=== PATIENT | male | born 1935 | race Caucasian/White ===

== ENCOUNTER 2018-05-17 09:02 | Day surgery (SDC) | payer MEDICARE, MEDICAID ==
[~2018-05-17 09:02] MED LIST: Acetaminophen TAB* 325 MG PO PRN; Buffered Lidocaine 0.9% SYRIN* 5 ML/SYR SYRINGE INTRADERM ONE
[2018-05-17] MEDS ORDERED: Midazolam* 1 MG/ML 5 ML VIAL (5 MG) ONE (10:27)
[2018-05-17] MEDS ORDERED: fentaNYL* 50 MCG/ML 2 ML VIAL (100 MCG VIAL) ONE (10:27)
[2018-05-17 11:42] VITALS: BP 163/72
[2018-05-17] MEDS ORDERED: Cyclopentolate 1% OPTH.SOL* 2 ML BTL ONE (12:04)
[2018-05-17] MEDS ORDERED: acetaZOLAMIDE TAB* 250 MG ONE (12:04)
[2018-05-17] MEDS ORDERED: Lidocaine 2% EPI 1:200000 MPF*10-20 ML VIAL ONE (12:04)
[2018-05-17] MEDS ORDERED: Lidocaine 1%* 5 ML VIAL ONE (12:04)
[2018-05-17] MEDS ORDERED: Ketorolac 0.5% OPHTH (NF) 0.5 % 5 ML BTL ONE (12:04)
[2018-05-17] MEDS ORDERED: Phenylephrine 2.5% OPTH.SOL* 2 ML BTL ONE (12:04)
[2018-05-17] MEDS ORDERED: Povidone Iodine 5% OPTH* 30 ML BTL ONE (12:04)
[2018-05-17] MEDS ORDERED: Neomycin/Polymy/Dex OPTH.SUSP* MAXITROL 0.1% 5 ML ONE (12:04)
[2018-05-17] MEDS ORDERED: Proparacaine 0.5% OPHTH.SOL* 15 ML BTL ONE (12:04)
--- NOTE | 2018-05-17 12:25 | OP ---
DATE OF OPERATION: 05/17/2018. DATE OF : 1935. SURGEON: Jose Daniel Tobin M.D. PREOPERATIVE DIAGNOSIS: Cataract right eye. POSTOPERATIVE DIAGNOSIS: Cataract right eye. OPERATIVE PROCEDURE: Extracapsular cataract extraction with intraocular lens implant right eye. PROCEDURE: The patient was brought to the operating room after being given 1/2% Alcaine with epineph rine drops in the preoperative area. The eye was prepped and draped in the usual sterile fashion. S terile drape and eyelid speculum were placed. Again, topical 1/2% Alcaine with epinephrine was given . A paracentesis incision was made at the 9 o'clock position with the No.75 blade. Clear cornea inc ision 2.2 x 2.2-mm was created at the 12 o'clock position starting at the anterior limbus using the 2 .2-mm keratome. The anterior chamber was irrigated with 0.4 mL of 1% non-preservative intracameral l idocaine and filled with DisCoVisc. A capsulorrhexis was completed using the cystotome and the Utrat a forceps. Hydrodissection was performed with balanced salt solution. The lens nucleus was removed w ith the Phacoemulsification handpiece without incident. Cortex was removed with the irrigation-aspir ation handpiece. The capsular bag was re-inflated using DisCoVisc and an SN60WF 20.5 Implant was ins erted with the shooter. The irrigation-aspiration handpiece was used to remove all residual DisCoVis c. The eye was refilled with balanced salt solution and the wound checked and found to be watertight . Topical Maxitrol drops were given. [id number]/[facility] #: [id number]
== END 2018-05-17 11:39 | disposition home or self-care (01) ==
LOC: OREAST 09:02
PROVIDERS: ATTEND Specialist
DX: H25.811 Combined forms of age-related cataract, right eye (principal); H43.813 Vitreous degeneration, bilateral; Z85.828 Personal history of other malignant neoplasm of skin; K21.9 Gastro-esophageal reflux disease without esophagitis; I10 Essential (primary) hypertension; I25.2 Old myocardial infarction; E78.00 Pure hypercholesterolemia, unspecified; Z95.5 Presence of coronary angioplasty implant and graft; Z86.718 Personal history of other venous thrombosis and embolism; Z79.01 Long term (current) use of anticoagulants; I25.10 Atherosclerotic heart disease of native coronary artery without angina pectoris; D64.9 Anemia, unspecified
CPT/HCPCS: A9270-GY; J2250; J3010; V2632

== ENCOUNTER 2018-11-17 11:48 | Emergency (ER) | payer MEDICARE, MEDICAID ==
[2018-11-17 11:54] VITALS: BP 182/80
--- NOTE | 2018-11-17 11:57 | UC ---
Head Injury HPI - HPI Summary HPI Summary: PATIENT SENT OVER TO DIRECTLY FROM IMAGING WITH A SUBDURAL HEMATOMA. PATIENT FELL 2 WEEKS AGO AND HAS HAD PERSISTENT PAIN AROUND HIS RIGHT EYE SINCE THEN. UNSURE IF ANY LOC. IS ON PLAVIX. HE WENT TO THE SYSTEM[facility] TESTING [facility]ORAT[facility] TECHNICIAN TODAY FOR FURTHER EVALUATION AND WAS ADVISED TO FOLLOW-UP WITH HIS PCP WHO ORDERED THE IMAGING. PT DENIES ANY SPEECH DIFFICULTY, WEAKNESS OR CHANGE IN HIS GAIT. - History Of Current Complaint Stated Complaint: BRAIN BLEED Time Seen by Provider: 11/17/18 11:51 Hx Obtained From: Patient Onset/Duration: Sudden Onset, Lasting Weeks, Still Present Severity Currently: Mild Severity Initially: Mild Pain Intensity: 0 Pain Scale Used: 0-10 Numeric Character: Dull Aggravating Factor(s): Nothing Alleviating Factor(s): Nothing Associated Signs And Symptoms: Negative: Memory Loss, Neck Pain, Nausea - Allergies/Home Medications Allergies/Adverse Reactions: Allergies Allergy/AdvReac Type Severity Reaction Status Date / Time allopurinol Allergy Rash Verified 11/17/18 12:23 PMH/Surg Hx/FS Hx/Imm Hx Cardiovascular History: Cardiac Disease Other Cancer History: skin cancer - Surgical History Surgical History: Yes Surgery Procedure, Year, and Place: CARDIAC STENTS 2005, [place]. Basal cell skin lesion removed, right lower eyelid 2012 - Social History Alcohol Use: Occasionally Substance Use Type: None Smoking Status (MU): Never Smoked Tobacco Review of Systems All Other Systems Reviewed And Are Negative: Yes Constitutional: Positive: Negative Skin: Positive: Negative Eyes: Negative: Blurred Vision, Drainage, Eye Redness Respiratory: Positive: Negative Cardiovascular: Positive: Negative Gastrointestinal: Positive: Negative Neurological: Positive: Headache Physical Exam Triage Information Reviewed: Yes Appearance: Well-Appearing, No Pain Distress, Well-Nourished Vital Signs: Initial Vital Signs Temp 98.1 F 11/17/18 11:50 Pulse 90 11/17/18 11:50 Resp 18 11/17/18 11:50 BP 182/80 11/17/18 11:50 Pulse Ox 99 11/17/18 11:50 Vital Signs Reviewed: Yes Eyes: Positive: Conjunctiva Clear, Other: - PERRL, EOMI. Negative: Discharge ENT: Positive: Hearing grossly normal, Pharynx normal, Other - RIGHT TM OBSTRUCTED BY CERUMEN. 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 Psychological: Positive: Age Appropriate Behavior Skin: Negative: Rashes Diagnostics - Radiology CT HEAD W/O CONTRAST Radiology Interpretation Completed By: Radiologist Summary of Radiographic Findings: ACUTE/SUBACUTE RIGHT FRONTAL SUBDURAL HEMATOMA MEASURING UP TO 1.8CM IN DEPTH Head Injury Course/Dx - Course Course Of Treatment: TO [facility] [place] [place] [facility] BY AMBULANCE - Differential Dx/Diagnosis Provider Diagnosis: Subdural hematoma - Physician Notification/Consults Discussed Patient Care With: Luis Antonio Saba - TO [facility] [place] BY AMBULANCE Time Discussed With Above Provider: 11:55 Instructed by Provider To: MD Will See In ED Discharge - Sign-Out/Discharge Documenting (check all that apply): Patient Departure All imaging exams completed and their final reports reviewed: Yes - Discharge Plan Condition: Guarded Disposition: TRANS HIGHER LVL OF CARE FAC Referrals: Robert Baez MD [Primary Care Provider] - - Billing Disposition and Condition Condition: GUARDED Disposition: Trans Higher Lvl of Care Fac
== END 2018-11-17 12:21 | disposition short-term general hospital (02) ==
LOC: UCEAST 11:48
DX: I62.00 Nontraumatic subdural hemorrhage, unspecified (principal); R51 Headache; H61.22 Impacted cerumen, left ear; I51.9 Heart disease, unspecified; Z95.5 Presence of coronary angioplasty implant and graft; Z79.02 Long term (current) use of antithrombotics/antiplatelets; Z88.8 Allergy status to other drugs, medicaments and biological substances
CPT/HCPCS: 99213; G0463

== ENCOUNTER 2018-11-17 12:14 | Observation (INO) | payer MEDICARE, MEDICAID ==
[2018-11-17] MEDS ORDERED: Labetalol IV* 5 MG/ML 20 ML VIAL IV PUSH ONE (12:24)
[2018-11-17] MEDS ORDERED: levETIRAcetam 1000MG IVPREMIX* 1,000 MG/100 ML BAG IVPB ONE (12:27)
--- NOTE | 2018-11-17 12:27 | ED ---
Head Injury - HPI Summary HPI Summary: This patient is an 83 year old M brought in by ambulance to [facility] upon referral from convenient care with a chief complaint of pain behind his right eye since 2 weeks ago. Patient notes that his symptoms began after he had a syncopal episode but he did not initially seek medical care. Patient notes that he went to see his PCP who referred him to convenient care for a Brain CT that revealed a brain bleed. The patient rates the pain 1/10 in severity. Symptoms aggravated by nothing. Symptoms alleviated by nothing. Patient denies vision changes or neurological deficits. Patient had an DE in 2005 and stent placement. Patient takes Plavix - History Of Current Complaint Stated Complaint: BRAIN BLEED FROM FALL PER EMS Time Seen by Provider: 11/17/18 12:16 Hx Obtained From: Patient Mechanism Of Injury: Fall From A Standing Position Onset/Duration: Started Weeks Ago - 2 weeks ago, Traumatic - after syncopal episode, Still Present Onset of Pain: Immediate, Post Accident, Prior to Arrival Severity Currently: Mild Severity Initially: Mild Pain Intensity: 1 Pain Scale Used: 0-10 Numeric Location of Head Injury: Other: - behind right eye Aggravating Factor(s): Other: - nothing Alleviating Factor(s): Other: - nothing Associated Signs And Symptoms: Negative - negative vision changes, negative neurological deficits, LOC Duration Unknown Anticoagulant Therapy: Blood Thinners - Plavix - Allergies/Home Medications Allergies/Adverse Reactions: Allergies Allergy/AdvReac Type Severity Reaction Status Date / Time allopurinol Allergy Rash Verified 11/17/18 12:23 Home Medications: Home Medications Aspirin EC TAB* [Ecotrin EC Low Dose 81 MG*] 81 mg PO DAILY 11/17/18 [History Confirmed 11/17/18] Atorvastatin* [Lipitor 80 MG*] 80 mg PO DAILY 11/17/18 [History Confirmed ] Losartan/HCTZ 100/25 (NF) [Hyzaar 100/25 (NF)] 1 tab PO DAILY 11/17/18 [History Confirmed 11/17/18] Metoprolol Succinate XL TAB* [Toprol XL TAB*] 25 mg PO DAILY 11/17/18 [History Confirmed 11/17/18] Pantoprazole TAB * [Protonix TAB*] 40 mg PO DAILY 11/17/18 [History Confirmed ] PMH/Surg Hx/FS Hx/Imm Hx Cardiovascular History: Reports: Hx Coronary Artery Disease, Hx Hypertension - ON MEDS, Hx Myocardial Infarction - in 2006, Other Cardiovascular Problems/ Disorders - DVT 2000 left leg Respiratory History: Denies: Other Respiratory Problems/Disorders GI History: Reports: Hx Gastroesophageal Reflux Disease - on medication, Other GI Disorders - Abebe's esophagus per H&P History: Denies: Other Problems/Disorders Musculoskeletal History: Reports: Other Musculoskeletal History - had gout once Sensory History: Reports: Hx Cataracts - Bilateral, Hx Contacts or Glasses - Reading glasses Denies: Hx Hearing Aid Opthamlomology History: Reports: Hx Cataracts - Bilateral, Hx Contacts or Glasses - Reading glasses Neurological History: Denies: Other Neuro Impairments/Disorders - Cancer History Hx Chemotherapy: No - Surgical History Surgery Procedure, Year, and Place: CARDIAC STENTS 2005, [place]. Basal cell skin lesion removed, right lower eyelid 2012 Hx Anesthesia Reactions: No - Family History Known Family History: Negative: Blood Disorder - Social History Alcohol Use: Occasionally Substance Use Type: Reports: None Smoking Status (MU): Never Smoked Tobacco Review of Systems Eyes: Other - pain behind right eye Negative: Photophobia, Blurred Vision Negative: Cough Negative: Vomiting Negative: Bruising Positive: Headache - pain behind right eye, Syncope - 2 weeks ago All Other Systems Reviewed And Are Negative: Yes Physical Exam - Summary Physical Exam Summary: VITAL SIGNS: Reviewed. GENERAL: Patient is a well-developed and nourished MALE who is lying comfortable in the stretcher.Patient is not in any acute respiratory distress. HEAD AND FACE: No signs of trauma. No ecchymosis, hematomas or skull depressions. No sinus tenderness. EYES: PERRLA, EOMI x 2, No injected conjunctiva, no nystagmus. No photophobia. EARS: Hearing grossly intact. Ear canals and tympanic membranes are within normal limits. MOUTH: Oropharynx within normal limits. NECK: Supple, trachea is midline, no adenopathy, no JVD, no carotid bruit, no c- spine tenderness, neck with full ROM. No meningeal signs, no Kernig's or brudzinskis signs. CHEST: Symmetric, no tenderness at palpation LUNGS: Clear to auscultation bilaterally. No wheezing or crackles. CVS: Regular rate and rhythm, S1 and S2 present, no murmurs or gallops appreciated. ABDOMEN: Soft, non-tender. No signs of distention. No rebound no guarding, and no masses palpated. Bowel sounds are normal. EXTREMITIES: FROM in all major joints, no edema, no cyanosis or clubbing. NEURO: Alert and oriented x 3. No acute neurological deficits. Speech is normal and follows commands. SKIN: Dry and warm GCS: 15 Triage Information Reviewed: Yes Vital Signs Reviewed: Yes Diagnostics - Laboratory Result Diagrams: 11/17/18 13:00 11/17/18 13:00 Lab Statement: Any lab studies that have been ordered have been reviewed, and results considered in the medical decision making process. - EKG 12:25 Cardiac Rate: NL - 85 bpm EKG Rhythm: Sinus Rhythm Summary of EKG Findings: EKG reveals sinus rhythm at 85 bpm with T wave inversion in V4 and V5 National Institutes Of Health - NIH Scale Level of Consciousness: Alert/Keenly Responsive Ask Patient the Month and His/Her Age: Both Correct Ask Pt to Open/Close Eyes and Silk Screen Layout Drafter/Release Non-Paretic Hand: Both Correctly Best Gaze (Only Horizontal Eye Movement): Normal Visual Field Testing: No Visual Loss Facial Paresis-Pt to Smile & Close Eyes or Grimace Symmetry: Normal/Symmetrical Motor Function - Right Arm: No Drift-Holds 10 Seconds Motor Function - Left Arm: No Drift-Holds 10 Seconds Motor Function - Right Leg: No Drift-Holds 10 Seconds Motor Function - Left Leg: No Drift-Holds 10 Seconds Limb Ataxia-Must be out of Proportion to Weakness Present: Absent Sensory (Use Pinprick to Test Arms/Legs/Trunk/Face): Normal Best Language (Describe Picture, Name Items): No Aphasia Dysarthria (Read Several Words): Normal Extinction and Inattention: No Abnormality Total Score: 0 Head Injury Course/Dx Assessment/Plan: This patient is an 83-year-old female who presents to the emergency department with a chief complaint of having pain behind his right eye. He reports that about 2 weeks ago the patient had a syncopal episode and he found himself on the floor. He did not seek medical attention until now that the patient is having this pain behind the right eye. The patient went to the urgent care to get a head CT which shows a acute/subacute right frontal subdural hematoma measuring up to 1.8 cm and depth. There is no shift. Therefore, the patient was sent to the emergency for further workup and management. At arrival to the emergency department the patient doesnt have any deficits, the NIH score is equal to 0 and the GCS is equal to 15. The patient was started on Keppra 1 g by mouth and also labetalol 2 mg IV. Blood work without any significant abnormality except for BUN of 39 And 1.51 glucose is 109. Slight anemia with hemoglobin 11.8 and hematocrit 34. Urinalysis is negative for UTI. Nikki LOWERY working with and Dr. Kenny came is for the patient and they recommend for the patient to be admitted to the hospitalist services. The patient continued to be hemodynamically stable alert oriented 3. I discuss my physical exam, findings and test results with Dr. Harley from the hospitalist services and he agrees to admit patient to his services. Patient is hemodynamically stable alert and oriented x 3. - Diagnoses Provider Diagnoses: Subdural hematoma - Physician Notifications Discussed Care Of Patient With: Nikki Williamson Time Discussed With Above Provider: 12:35 Instructed by Provider To: Other - Nikki LOWERY agreed that the patient should be given Keppra and said the patient will have to be admitted to medicine but neurosurgery will consult. Dr. Kenny, neurosurgery, recommends admitting patient to ICU although there are no beds available in ICU. Spoke with Dr. Harley, hospitalist, at 1508 who says that if neurosurgery is comfortable with admission to floor, then he is agreeable to admission, but if not, then the patient will have to be transfered. Dr. Harley, hospitalist, agrees to admit patient at 1525. - Critical Care Time Critical Care Time: 75-104 min Discharge - Sign-Out/Discharge Documenting (check all that apply): Patient Departure - Admit Patient Received Moderate/Deep Sedation with Procedure: No - Discharge Plan Condition: Fair Disposition: ADMITTED TO [facility] - Billing Disposition and Condition Condition: FAIR Disposition: Admitted to [facility] - Attestation Statements Document Initiated by Scribe: Yes Documenting Scribe: Jennifer Garcia Provider For Whom Scribe is Documenting (Include Credential): Ramsey Lamas MD Scribe Attestation: IJennifer, scribed for Ramsey Lamas MD on 11/17/18 at 1805. Scribe Documentation Reviewed: Yes Provider Attestation: The documentation as recorded by the scribe, Jennifer Garcia accurately reflects the service I personally performed and the decisions made by me, Ramsey Lamas MD Status of Scribe Document: Viewed
[2018-11-17 13:23] LABS: ABS Basophils 0.1 10^3/ul (0-0.2); ABS Eosinophils 0.1 10^3/ul (0-0.6); ABS Lymphocytes 0.9 10^3/ul (1.0-4.8); ABS Monocytes 0.6 10^3/ul (0-0.8); ABS Nucleated RBC 0 10^3/ul; Eosinophil % 1.8 %; Hematocrit 34 % (36-46); Hemoglobin 11.8 g/dL (14.0-18.0); Lymphocyte % 15.9 %; Mean Corpuscular HGB Conc 34 g/dL (31-36); Mean Corpuscular Hemoglobin 34 pg (27-31); Mean Corpuscular Volume 99 fL (80-94); Mean Platelet Volume 7.1 fL (7.4-10.4); Nucleated Red Blood Cells % 0; Platelet Count 385 10^3/uL (150-450); Red Blood Count 3.47 10^6 /uL (4.18-5.48); Red Cell Distribution Width 12 % (10.5-15); White Blood Count 5.7 10^3/uL (3.5-10.8)
[2018-11-17 13:36] LABS: Troponin I 0.03 ng/mL (<0.04)
[2018-11-17 13:51] LABS: Albumin 3.9 g/dL (3.2-5.2); Albumin/Globulin Ratio 1.2 (1-3); BUN/Creatinine Ratio 25.8 (8-20); Calcium 10.2 mg/dL (8.6-10.3); EGFR African American 53.5 (>60); EGFR Non-African American 44.2 (>60); Globulin 3.3 g/dL (2-4); HDL Cholesterol 47.7 mg/dL; Potassium 3.5 mmol/L (3.5-5.0); Total Bilirubin 0.7 mg/dL (0.2-1.0); Total Protein 7.2 g/dL (6.4-8.9)
[2018-11-17 13:52] LABS: Activated Partial Thrombo Time 30.7 seconds (26.0-36.3); INR 0.98 (0.77-1.02)
[2018-11-17 14:42] LABS: Urine Appearance Clear; Urine Bacteria Absent (Absent); Urine Bilirubin Negative (Negative); Urine Blood Negative (Negative); Urine Color Yellow; Urine Glucose Negative (Negative); Urine Ketones Negative (Negative); Urine Nitrite Negative (Negative); Urine Protein 1+(30 mg/dL) (Negative); Urine Red Blood Cell Trace(0-2/hpf) (Absent); Urine Specific Gravity 1.011 (1.010-1.030); Urine Squamous Epithelial Cell Present (Absent); Urine Urobilinogen Negative (Negative); Urine White Blood Cell Absent (Absent)
--- NOTE | 2018-11-17 14:54 | CONSULT ---
Consult Consult: Neurosurgery Consult Date of Admission: 11/17/18 Date of Consult: 11/17/18 Reason for Consult: Right SDH Referring Provider: Dr. Lamas HPI: This is am 83 year old male with past medical history significant for HTN, GA with placement of 2 stents in 2005 currently taking plavix, and LLE DVT in 1999 who reports history of syncope and fall on the night of 11/05/18. He states that he went upstairs to bed and at some point fell in his bedroom, impacting the right elbow and right side of his face. He does not recall all events of the fall and therefore thinks he probably lost consciousness. After an unknown amount of time, he was able to stand up and get into bed. The next morning, he noticed right side periorbital facial pain and ecchymosis down into the cheek and right elbow pain. The ecchymosis gradually improved over the next few days, the pain and soreness in the face and eye area has persisted. He describes pain in the right periorbital to maxillary region fluctuating in intensity. He has a history of bilateral cataract extractions in 05/2018 and he was concerned that something was damage in the eye so he presented to [facility] for follow up on 11/16/18 and was seen by Dr. hO. She recommended that he follow up with his PCP, Dr. Baez who he saw today. Per the patient, Dr. Baez was concerned with possible elbow and facial injury and therefore recommended evaluation at convenient care. The patient was seen at convenient care today, xrays of the right elbow and CT brain were obtained. CT showed right frontal subdural hematoma and he was therefore transported by ambulance to [facility] for further evaluation and treatment. Currently he is feeling well with exception of right facial symptoms. Denies fever, chills, headache, lightheadedness, dizziness, neck pain, chest pain, SOB, difficulty breathing, nausea, vomiting, changes in speech, blurred vision, poor appetite, dysphagia, seizure, additional falls or trauma, numbness, tingling, weakness and pain in the bilateral upper and lower extremities. He did take his home medications this morning. He has not eaten since last night. Past Medical History: 1. HTN 2. GA in 06/2006, 2 stents placed in [place], [place] 3. Hyperlipidemia 4. LLE DVT 1999 Past Surgical History: 1. Bilateral cataract extractions 05/2018 Home Medications: 1. Clopidogrel TAB* [Plavix TAB*] 75 mg PO QAM 04/17/13 [History Confirmed 11/17] 2. Aspirin EC TAB* [Ecotrin EC Low Dose 81 MG*] 81 mg PO DAILY 11/17/18 [ History Confirmed 11/17/18] 3.Atorvastatin* [Lipitor 80 MG*] 80 mg PO DAILY 11/17/18 [History Confirmed 07/26] 4. Losartan/HCTZ 100/25 (NF) [Hyzaar 100/25 (NF)] 1 tab PO DAILY 11/17/18 [ History Confirmed 11/17/18] 5. Metoprolol Succinate XL TAB* [Toprol XL TAB*] 25 mg PO DAILY 11/17/18 [ History Confirmed 11/17/18] 6. Pantoprazole TAB * [Protonix TAB*] 40 mg PO DAILY 11/17/18 [History Confirmed 11/17/18] Allergies: 1. 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 Does not smoke. Consumes 1-2 drinks of scotch every night. His sister lives in [place]. ROS: Full ROS completed. Pertinent findings stated in HPI, all others negative. Physical Exam: Vital Signs: Temp Pulse Resp BP Pulse Ox 97.5 F 88 15 171/91 97 11/17/18 12:19 11/17/18 13:01 11/17/18 13:01 11/17/18 12:57 11/17/18 13:01 General: Alert and oriented to person, place and date. HEENT: Head is normocephalic, atraumatic. PERRL, EOMI. Gross hearing intact. Moist mucus membranes. Neck: Supple and symmetric. C spine is nontender to palpation. Full ROM. CV: Radial and pedal pulses 2+ and equal Lungs: Breathing is nonlabored Neuro: Speech is clear. Answers questions appropriately. Oriented x3. CN II-XII intact. Mild left facial asymmetry with smile, no facial droop. Strength 5/5 bilaterally upper and lower extremities. Sensation intact throughout. Coordination intact. DTR 2+ throughout. PERRL, EOMI. Extremities: Mild LLE edema. Imagin. CT brain on 11/17/18 shows right frontal subacute subdural hematoma Assessment and Plan: This is an 83 year old male presenting with right facial/ periorbital pain for the past 2 weeks after an unwitnessed fall. CT brain shows subacute SDH. The patient is neurologically intact. No surgical intervention recommended at this time. Repeat CT brain will be obtained in the morning. He will be admitted to hospitalist service. This case was discussed with Dr. Kenny and Dr. Lamas. Plan was discussed with the patient and he understands.
[2018-11-17] MEDS ORDERED: Perflutren Lipid Microsphere* 3 ML VIAL ONE (16:08)
--- NOTE | 2018-11-17 18:10 | ECHO ---
Patient: IRENE POSEY [facility] Rec#: [id number] : 1935 Date: 11/17/2018 Age: 83y Height: 170 cm / 66.9 in Weight: 82 kg / 180.7 lbs Sex: M BSA: 1.94 Room#: ED 12 Admit Date#: 11/17/2018 Type: Inpatient Referring: MENDEL HARLEY Reading: Segundo Barragan MD Dining Room Busser: Layne MedleyRDCS,RDMS Transthoracic Echocardiogram Indication: SYNCOPE BP: 128/78 HR: 88 Rhythm: NSR Findings History: MA, PCI, HTN, HLD, DVT Technical Comments: The study is technically limited due to poor acoustic windows. Left Ventricle: The left ventricular chamber size is decreased. Moderate to severe concentric left ventricular hypertrophy is observed. There is a prominent septal knuckle. The left ventricle appears hyperdynamic. The estimated ejection fraction is greater than 65%. Abnormal left ventricular diastolic function is observed. The left ventricular diastolic filling pattern is consistent with pseudonormalization. Left Atrium: The left atrium is moderately dilated. Right Ventricle: The right ventricular cavity size is normal. The right ventricular global systolic function is normal. Right Atrium: The right atrium is not well visualized. Aortic Valve: The aortic valve leaflets are moderately thickened. Systolic excursion of the aortic valve cusps is reduced. There is aortic annular calcification. There is no evidence of aortic regurgitation. There is severe aortic stenosis. The mean gradient of the aortic valve is 49 mmHg. The aortic valve area, by peak velocities, is calculated at 0.8 cm2. Mitral Valve: There is mitral annular calcification. Mild mitral leaflet calcification is visualized. There is a trace of mitral regurgitation. There is no evidence of mitral stenosis. Tricuspid Valve: The tricuspid valve leaflets are normal. There is no evidence of tricuspid valve regurgitation. Unable to estimate the right ventricular systolic pressure. Pulmonic Valve: The pulmonic valve structure is not well visualized. There is no evidence of pulmonic valve thickening. There is a trace pulmonic regurgitation. Pericardium: There is no significant pericardial effusion. Aorta: There is no dilatation of the ascending aorta. The aortic arch is not well visualized. There is mild dilatation of the aortic root. Pulmonary Artery: The main pulmonary artery is not well visualized. Venous: The inferior vena cava is not visualized. Contrast: Definity was used to optimize study. A total of 3 ml was used. Summary: There was not any prior study for comparison. Conclusions The left ventricular chamber size is decreased. Moderate to severe concentric left ventricular hypertrophy is observed. There is a prominent septal knuckle. The left ventricle appears hyperdynamic. The estimated ejection fraction is greater than 65%. The aortic valve area, by peak velocities, is calculated at 0.8 cm2. The mean gradient of the aortic valve is 49 mmHg. The left atrium is moderately dilated. The right ventricular global systolic function is hyperdynamic. There is severe aortic stenosis. The mean gradient of the aortic valve is 49 mmHg. The aortic valve area, by peak velocities, is calculated at 0.8 cm2. There is mild dilatation of the aortic root. Results reviewed with Dr. Harley. Measurements Name Value Normal Range RVIDd (AP) 2D 2 cm (0.9 - 2.6) IVSd (2D) 2.2 cm (0.6 - 1) LVPWd (2D) 1.6 cm (0.6 - 1) LVIDd (2D) 2.6 cm (3.6 - 5.4) LVIDs (2D) 1.6 cm - LV FS (2D) 40 % (25 - 45) Aortic Annulus 2.2 cm (1.4 - 2.6) Ao root diameter (2D) 3.7 cm (2.1 - 3.5) Ascending Ao 3.4 cm (2.1 - 3.4) LA dimension (AP) 2D 5.2 cm (2.3 - 3.8) LAd ISD 4CH 6.2 cm (2.9 - 5.3) LA ISD 4CH W 5.1 cm (2.5 - 4.5) Name Value Normal Range MV E-wave Vmax 0.5 m/sec - MV deceleration time 172 msec - MV A-wave Vmax 1.4 m/sec - MV E:A ratio 0.4 ratio - LV septal e' Vmax 0.03 m/sec - LV lateral e' Vmax 0.03 m/sec - LV E:e' septal ratio 17 ratio - LV E:e' lateral ratio 17 ratio - Name Value Normal Range AV Vmax 4.7 m/sec - AV VTI 86 cm - AV peak gradient 88 mmHg - AV mean gradient 49 mmHg - LVOT diameter 2 cm - LVOT Vmax 1.2 m/sec - LVOT VTI 22 cm - LVOT peak gradient 6 mmHg - LVOT mean gradient 3 mmHg - DOI (VTI) 0.3 ratio - LAUREN (continuity Vmax) 0.8 cm2 - LAUREN (continuity VTI) 0.8 cm2 - Name Value Normal Range MV Vmax 1.7 m/sec - MV VTI 31.5 cm - MV peak gradient 12 mmHg - MV mean gradient 4 mmHg - MV PHT 62 msec - MVA (PHT) 3.6 cm2 - MVA (continuity VTI) 2.2 cm2 - Name Value Normal Range RAP 8 mmHg - Name Value Normal Range PV Vmax 1.2 m/sec - PV peak gradient 6 mmHg -
[2018-11-17] MEDS: Atorvastatin* 80 MG TAB PO SCH (18:29)
--- NOTE | 2018-11-17 18:56 | HP ---
HISTORY AND PHYSICAL: DATE OF ADMISSION: 11/17/18 ADMITTING PROVIDER: Marcell Harley MD PRIMARY CARE PROVIDER: . OUTPATIENT IMPORT/EXPORT ANALYST: Dr. Canchola. CHIEF COMPLAINT: Syncope 2 weeks ago followed by some pain behind his right eye. HISTORY OF PRESENT ILLNESS: Merrick Teague is an 83-year-old male with past medical history of CAD, st atus post DE with 2 stents in 2005; hypertension; hyperlipidemia; left lower extremity DVT; gout; BPH ; Aebbe's esophagus; and severe aortic stenosis. He 2 weeks ago on 11/05/18 was feeling tired late at night, went up to his bedroom and either syncopized or fell down onto a wooden floor. He was abl e to get himself back up into bed and by the morning time noticed that he had bruises near his right eye, his right elbow and also scratches near his right eye. He had some pain behind his right eye an d saw Dr. Tobin, the broom handle dipper, who referred him back to Dr. Madrid; their office, Carlita patel NP, ordered a CT of his head and right elbow x-ray at the urgent care or convenient care. The non contrast CT head impression was acute versus subacute right frontal subdural hematoma measuring up to 1.8 cm in depth. There was no midline shift, no other infarction, no masses. His right elbow x-ray is read as given joint effusion an occult fracture is not excluded; in this age group, a fracture at the radial head would be most likely; dorsal soft tissue swelling and potential olecranon bursa fluid collection. He was [place] [facility] [place] given the subacute subdural hematoma. Of note, he is on aspirin and Plavix for his coronary artery disease. BEVERLEY Parmar, from Neurosurge , evaluated the patient in the emergency room and recommended admission with repeat CT head in the morning, but no surgical intervention was recommended at this time. She is recommending 2-hour neuro checks and that he can eat food. He is otherwise without complaints. He uses a cane, has never fal jennifer or syncopized before. He last saw Dr. Canchola on 06/20/18 and repeat echocardiogram every 6 months was entertained. His last one I see is on 11/11/17 with grade 1 diastolic dysfunction, severe aorti c stenosis, 3.8 m/sec velocity and 36 mmHg gradient. I do not see aortic valve area listed. He damien es any fevers, chills, nausea, vomiting, diarrhea, constipation, abdominal pain, vision changes, foca l weakness, slurred speech, paresthesias, numbness. PAST MEDICAL HISTORY: Hypertension; coronary artery disease, status post myocardial infarction, 2 st ents in 2005; hyperlipidemia; left lower extremity DVT; gout; Abebe's esophagus; BPH; severe aortic stenosis; grade 1 diastolic dysfunction. MEDICATIONS: Include: 1. Protonix 40 mg daily. 2. Plavix 75 mg daily. 3. Losartan/hydrochlorothiazide 100/25 mg daily. 4. Atorvastatin 80 mg daily. 5. Metoprolol succinate 25 mg daily. 6. Aspirin 81 mg daily. ALLERGIES: ALLOPURINOL presents rash. FAMILY HISTORY: His father had CHF. His mother of an accident. 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 Never a smoker. He does drink 1 to 2 sco tches a night. Medical surrogate is his roommate and member of his methodist order, Qasim Murillo. No drug use. He desires to be a full code. REVIEW OF SYSTEMS: A complete 14-point review of systems negative except as per HPI. He denies any loss of appetite. PHYSICAL EXAMINATION GENERAL APPEARANCE: No acute distress. VITAL SIGNS: Temperature 97.5; pulse rate 85; blood pressure initially 190/90, as high as 205/90, cu rrently 128/78; respiratory rate 17; satting 96% on room air. HEENT: Normocephalic. He has slight ecchymosis around right eye. Pupils are equally round and reac tive to light. Extraocular motions intact. No scleral icterus. Moist mucous membranes. No orophar ynx lesions. NECK: Supple. No cervical lymphadenopathy. LUNGS: Anteriorly clear to auscultation bilaterally with no wheezing, rales, or rhonchi. CARDIOVASCULAR: Regular rate and rhythm. Systolic ejection murmur loudest at the left lower sternal border. No rubs or gallops. ABDOMEN: Soft, nontender, nondistended. No rebound. No guarding. No Vu's sign. EXTREMITIES: Warm and well perfused. No peripheral edema. SKIN: There is erythema at the right elbow and bruising on the right eye. DIAGNOSTIC STUDIES/LAB DATA: White count of 5.7, hemoglobin 11.8, hematocrit 34, platelets 385. IN R 0.98. Sodium 137, potassium of 3.5, chloride 102, carbon dioxide 25, BUN 39, creatinine 1.51, GFR of 44, glucose 109, lactic acid 1.0, calcium 10.2. Total bili 0.7, AST 16, ALT 15, alk phos 95. Tro ponin 0.03. Triglycerides 96, cholesterol 113, LDL of 46, HDL of 47. Urinalysis: 1+ protein. Imaging: CT head noncontrast with acute versus subacute right frontal subdural hematoma measuring up to 1.8 cm in depth. There is no shift. Right elbow x-ray, impression of joint effusion. An occult fracture is not excluded. In this age gr oup, a fracture at the radial head would be most likely. There was no cortical disruption or suspicio us trabecular irregularity to suggest fracture. There is normal articular alignment. There was dors al soft tissue swelling most prominent and superficial to the olecranon process. EKG demonstrated normal sinus rhythm, normal axis, normal intervals. No ST depressions or elevations . Biphasic T-waves in V4, V5. There is a Q wave in III. No comparison in [employer]. Per text report per Dr. Canchola's note, it was normal sinus rhythm, LVH, minimal ST depression in V6. ASSESSMENT AND PLAN: Merrick Teague is an 83-year-old male with past medical history of coronary arter y disease, status post stents, on dual antiplatelet therapy with aspirin 81 mg daily and Plavix; joey re aortic stenosis; along with hypertension; hyperlipidemia; Abebe's esophagus, who syncopized 2 we eks ago, did not seek medical attention at that time, but due to pain behind his right eye was determ ined to have a subacute 1.8 cm subdural hematoma with no shift. Appreciate Neurosurgery recommendati ons. We will be admitting him to observation status on 4 as there are currently no any ICU bed s. Confirm with BEVERLEY Parmar that her desired q.2 hour neuro checks could be obtained on this lev el of service. Plan is to repeat a CT head in the morning. Order physical therapy. He can eat a he art- healthy diet. No surgical intervention is planned. Hold his Plavix and aspirin. Allow some per missive hypertension. We will hold his losartan/hydrochlorothiazide. Continue his Lipitor and his Pr otonix for his Abebe's esophagus and hyperlipidemia. I will continue his metoprolol succinate star ting tomorrow. For his syncope and severe aortic stenosis, he is actually almost exactly a year out from his last ec hocardiogram and this was scheduled to be repeated within the next month or so per Dr. Canchola's outpat ient notes. We will evaluate his valvular dysfunction and assess for any other new conditions. Jane tijerina physical therapy. His code status is full. Medical surrogate is his roommate and member of his co ngregation, Qasim Murillo. [id number]/CPS #: [id number]
[2018-11-17] MEDS: levETIRAcetam TAB* 500 MG PO SCH (20:05)
[2018-11-18] MEDS: levETIRAcetam TAB* 500 MG PO SCH (08:43)
[2018-11-18] MEDS: Atorvastatin* 80 MG TAB PO SCH (08:45)
[2018-11-18] MEDS ORDERED: Metoprolol Succinate XL TAB* 25 MG PO SCH (09:00)
[2018-11-18] MEDS ORDERED: Pantoprazole TAB * 40 MG TAB PO SCH (09:00)
--- NOTE | 2018-11-18 10:45 | PN ---
Progress Note - Progress Note Date of Service: 11/18/18 SOAP: Subjective: [Pt admitted with right subacute SDH after a fall 2 weeks ago, impacting the right side head and face. Feeling well this morning. Reports right sided facial and periorbital pain, slightly improved this morning. Denies headache, nausea, vomiting, dizziness, lightheadedness, vision changes, weakness or numbness in upper or lower extremities. Ambulating well independently, reports steady gait. Repeat CT brain this morning unchanged. ] Objective: [ Vital Signs: Temp Pulse Resp BP Pulse Ox 97.4 F 86 20 132/76 99 11/18/18 07:12 11/18/18 07:12 11/18/18 07:12 11/18/18 07:12 11/18/18 07:12 General: Alert laying comfortably in bed, NAD Neuro: Speech is clear. Answers questions appropriately. Oriented to person, place and date. CN II-XII intact. EOMI, PERRL. Stength 5/5 bilateral upper extremities. Sensation intact throughout. No pronator drift. CT brain on 11/18/18 shows right subacute SDH, unchanged since previous study.] Assessment: [Stable] Plan: [1. Cleared neurosurgically for discharge home. 2. Follow up in office with Dr. Kenny or BEVERLEY Parmar in 2 weeks 3. Hold Plavix for at least 2 weeks, will obtain follow up CT brain prior to f/ u appointment 4. Continue Keppra 500mg PO BID]
[2018-11-18 15:12] VITALS: BP 131/63
[2018-11-18] MEDS ORDERED: Atorvastatin* 80 MG TAB PO SCH (20:00)
--- NOTE | 2018-11-18 21:10 | DS ---
DISCHARGE SUMMARY: DATE OF ADMISSION: 11/17/18 DATE OF DISCHARGE: 11/18/18 PRIMARY DIAGNOSES: 1. Subdural hematoma. 2. Severe aortic stenosis. SECONDARY DIAGNOSES: 1. Hypertension. 2. Coronary artery disease. 3. Myocardial infarction. 4. Angioplasty in 2005. 5. Hyperlipidemia. 6. Lower extremity DVT. 7. Gout. 8. Abebe's esophagus. 9. Benign prostatic hypertrophy. 10. Severe aortic stenosis. 11. Grade 1 diastolic dysfunction. HOSPITAL COURSE: 83-year-old male with past medical history of coronary artery disease status post SC with 2 stents in 2005, hypertension, hyperlipidemia, lower leg DVT, gout, BPH, Abebe's esophagus and severe aortic stenosis, had syncopal episode on 11/05/18 in the bathroom. The patient does not remember much about this and it appears that he did lose consciousness. He was able to get back into bed and he noticed some bruising around his eye and elbow and he saw his sheet metal pattern cutter who referred him to Dr. Madrid's office. They ordered a CT of his head and right elbow x-ray.The noncontrast CT showed acute versus subacute right frontal subdural hematoma measuring up to 1.8 cm in depth. There was no midline shift , infarction or masses. The elbow x-ray was read joint effusion and occult fracture not excluded. Possible olecranon bursa fluid collection. The patient was seen by BEVERLEY Parmar, Neurosurgery, in the emergency room and recommended observation and repeat CT in the morning with no emergent surgical intervention. He also had neuro checks every 2 hours. The patient had repeat CT in the morning, which looked stable, and Neurosurgery does not recommend any surgical intervention at this time; they recommend discharging the patient and following up in their office in 2 weeks. The patient will be discharged on Keppra for seizure prophylaxis. They recommend holding the Plavix and the patient currently off aspirin and Plavix, his angioplasty was in 2005, until further evaluation by Neurosurgery in 2 weeks. The patient had an echocardiogram done to evaluate his aortic stenosis that likely led to his initial syncopal episode that caused the fall. The patient's aortic valve area was calculated as 0.8 cm sq, mean gradient of the aortic valve was 49 mmHg and the patient was noted to have severe aortic stenosis. The patient follows up with Cardiology, Dr. Canchola.The patient requests to be discharged today and agrees to f/u Dr Canchola as an outpatient. Discussed with Dr Barragan about further followup with Dr. Canchola as an outpatient and the patient will be calling the cardiology office next week. The patient noted to be in stable condition with no gait abnormalities. The patient is not complaining of any elbow pain. The patient to also follow up with Orthopedic Surgery as an outpatient as warranted. DISPOSITION: 1. The patient being discharged in stable condition and the patient wishes to go home today and will follow up with Cardiology and Neurosurgery as an outpatient. 2. The patient's aspirin and Plavix currently on hold and the patient being discharged on Keppra for seizure prophylaxis.No other changes to medications 3. The patient to follow up with Dr. Kenny or BEVERLEY Parmar, in 2 weeks and to have a CT brain prior to his appointment, which will be arranged by the neurosurgery office. 4. The patient to follow up with his PCP in 1 week. TIME SPENT: Total time spent on discharge equal to 40 minutes. PE HEENT: NCAT Heart: S1 S2 present 3/6 MARCIO Lungs: CTAB Abd: No rebound no guarding non tender Ext: No Edema [id number]/CPS #: [id number] MTDD
== END 2018-11-18 15:14 | disposition home or self-care (01) ==
LOC: ED 12:14 → MEDTELE 15:23
PROVIDERS: ADMIT Internal Medicine; ATTEND Internal Medicine
DX: I62.00 Nontraumatic subdural hemorrhage, unspecified (principal); I35.0 Nonrheumatic aortic (valve) stenosis; I10 Essential (primary) hypertension; I25.10 Atherosclerotic heart disease of native coronary artery without angina pectoris; I25.2 Old myocardial infarction; Z98.61 Coronary angioplasty status; E78.5 Hyperlipidemia, unspecified; Z86.718 Personal history of other venous thrombosis and embolism; M10.9 Gout, unspecified; K22.70 Barrett's esophagus without dysplasia; N40.0 Benign prostatic hyperplasia without lower urinary tract symptoms; I50.30 Unspecified diastolic (congestive) heart failure; R55 Syncope and collapse; Z79.82 Long term (current) use of aspirin; H53.141 Visual discomfort, right eye; H61.22 Impacted cerumen, left ear; I51.9 Heart disease, unspecified; Z79.02 Long term (current) use of antithrombotics/antiplatelets; Z88.8 Allergy status to other drugs, medicaments and biological substances
CPT/HCPCS: 36415; 70450; 80053; 80061; 81003; 81015; 83605; 84484; 85025; 85610; 85730; 86850; 86900; 86901; 93005; 93306; 96374; 96375; 99284; A9270-GY; C8929; G0378; G8978-GP-CI; G8979-GP-CI; G8980-GP-CI; J1953

== ENCOUNTER 2019-06-03 19:40 | Inpatient (IN) | payer MEDICARE, MEDICAID ==
[2019-06-03] MEDS ORDERED: NS 0.9% 1000 ML** 1,000 ML IV ONE (20:07)
[2019-06-03 20:37] LABS: Hematocrit 44 % (42-52); Hemoglobin 15.2 g/dL (14.0-18.0); Mean Corpuscular HGB Conc 34 g/dL (31-36); Mean Corpuscular Hemoglobin 33 pg (27-31); Mean Corpuscular Volume 97 fL (80-94); Mean Platelet Volume 7.6 fL (7.4-10.4); Platelet Count 229 10^3/uL (150-450); Red Cell Distribution Width 15 % (10-15); White Blood Count 10.1 10^3/uL (3.5-10.8)
[2019-06-03 20:47] LABS: ABS Lymphocytes 0.5 10^3/ul (1.0-4.8); ABS Monocytes 0.9 10^3/ul (0-0.8); ABS Neutrophils 8.8 10^3/ul (1.5-7.7); Lymphocyte % 4.6 %
[2019-06-03 20:48] LABS: INR 0.97 (0.82-1.09)
--- OUTSIDE RECORDS SUMMARY | 2019-06-03 20:48 | XMS REPORT | Continuity of Care Document ---
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 Onset: consciousness, subsequent encounter Social History Type Date Description Comments Sex Unknown ETOH Use Drinks 2 Alcoholic Beverages Per Day Tobacco Use Start: Unknown Patient has never smoked Recreational Drug Use Denies Drug Use Smoking Status Reviewed: 05/31/19 Patient has never smoked Exercise Type/Frequency Exercises rarely Allergies, Adverse Reactions, Alerts Active Allergies Reaction Severity Comments Date Allopurinol rash 04/18/2017 Medications Active Medications SIG Qnty Indications Ordering Provider Date Metoprolol Succinate 1 by mouth every 90tabs Robert Baez, 10/11/2017 ER day 25mg Tablets ER 24HR Lipitor 1 by mouth every 90tabs Robert Baez, 07/06/2006 80mg Tablets night at bedtime Protonix 1 by mouth every 90tabs Robert Baez, 11/27/2000 40mg Tablets day MD DR Sales one sl q5min up 90tabs Robert Baez, 0.4mg Tablets to 3 doses as MD Sub needed Clopidogrel Bisulfate take one tablet 90tabs Robert Baez, by mouth every MD 75mg Tablets day History Medications Keppra Take one tablet 120tabs S06.5x0D Jorge Kenny, 12/29/2018 - 500mg by mouth twice M.D. 05/21/2019 Tablets daily Immunizations CPT Code Status Date Vaccine Lot # [id number] Given 04/28/2019 Fluzone High Dose Vital Signs Date Vital Result Comment 05/31/2019 12:03pm Height 67 inches 5'7" Weight 178.00 lb Heart Rate 72 /min BP Systolic 174 mmHg BP Diastolic 75 mmHg O2 % BldC Oximetry 97 % BMI (Body Mass Index) 27.9 kg/m2 04/18/2019 12:08pm Height 67 inches 5'7" Weight 178.00 lb with shoes Heart Rate 78 /min BP Systolic Sitting 158 mmHg Lue reg cuff BP Diastolic Sitting 82 mmHg Lue reg cuff BP Systolic Standing 150 mmHg Lue reg cuff BP Diastolic Standing 80 mmHg Lue reg cuff Respiratory Rate 16 /min BMI (Body Mass Index) 27.9 kg/m2 Results Description No Information Available Procedures Date Code Description Status 04/10/2019 92441 ECHO Transthorasic Realtime 2D W Doppler & Color Flow Hosp Completed Medical Devices Description No Information Available Encounters Type Date Location Provider Dx Diagnosis Office Visit 04/18/2019 [facility] Son Freeman I25.10 Athscl heart 11:45a Of Amina Canchola M.D. disease of [place] coronary artery w/o ang pctrs I35.0 Nonrheumatic aortic (valve) stenosis Office Visit 02/26/2019 [facility] Gastroenterology Robert Mathews I35.0 Nonrheumatic 2:00p MD Nestor aortic (valve) stenosis R55 Syncope and collapse I25.10 Athscl heart disease of [place] coronary artery w/o ang pctrs S06.5x0D Traum subdr hem w/o loss of consciousness, subs Office 01/04/2019 [facility] Gastroenterology Robert Mathews S06.5x0D Traum subdr hem Visit 11:15a MD Nestor w/o loss of consciousness, subs I35.0 Nonrheumatic aortic (valve) stenosis I25.10 Athscl heart disease of [place] coronary artery w/o ang pctrs R55 Syncope and collapse Office Visit 12/29/2018 Neurosurgery Nikki Williamson, S06.5x0D Traum subdr hem w/o 10:00a [facility] RAQUEL loss of consciousness, subs Office Visit 12/06/2018 [facility] Son Freeman I25.10 Athscl heart 11:30a Of Amina Canchola M.D. disease of [place] coronary artery w/o ang pctrs I35.0 Nonrheumatic aortic (valve) stenosis Office 12/04/2018 Neurosurgery Jorge S06.5x0D Traum subdr hem Visit 10:30a [facility] Zoya, w/o loss of M.D. consciousness, subs Office 11/30/2018 [facility] Gastroenterology Robert Mathews S06.5x0A Traum subdr hem Visit 11:00a MD Nestor w/o loss of consciousness, init I25.10 Athscl heart disease of [place] coronary artery w/o ang pctrs I35.0 Nonrheumatic aortic (valve) stenosis R55 Syncope and collapse Assessments Date Code Description Provider 04/18/2019 I25.10 Atherosclerotic heart disease of [place] Son Canchola M.D. coronary artery without angina pectoris 04/18/2019 I35.0 Nonrheumatic aortic (valve) stenosis Son Canchola M.D. 04/10/2019 I25.10 Atherosclerotic heart disease of [place] Son Canchola M.D. coronary artery without angina pectoris 02/26/2019 I35.0 Nonrheumatic aortic (valve) stenosis Robert Baez MD 02/26/2019 R55 Syncope and collapse Robert Baez MD 02/26/2019 I25.10 Atherosclerotic heart disease of [place] Robert Baez MD coronary artery with 02/26/2019 S06.5x0D Traumatic subdural hemorrhage without loss Robert Baez MD of consciousness, 01/04/2019 S06.5x0D Traumatic subdural hemorrhage without loss Robert Baez MD of consciousness, 01/04/2019 I35.0 Nonrheumatic aortic (valve) stenosis Robert Baez MD 01/04/2019 I25.10 Atherosclerotic heart disease of [place] Robert Baez MD coronary artery with 01/04/2019 R55 Syncope and collapse Robert Baez MD 12/29/2018 S06.5x0D Traumatic subdural hemorrhage without loss Nikki Williamson PA-C of consciousness, 12/06/2018 I25.10 Atherosclerotic heart disease of [place] Son Canchola M.D. coronary artery with 12/06/2018 I35.0 Nonrheumatic aortic (valve) stenosis Son Canchola M.D. 12/04/2018 S06.5x0D Traumatic subdural hemorrhage without loss Jorge Kenny M.D. of consciousness, 11/30/2018 S06.5x0A Traumatic subdural hemorrhage without loss Robert Baez MD of consciousness, 11/30/2018 I25.10 Atherosclerotic heart disease of [place] Robert Baez MD coronary artery with 11/30/2018 I35.0 Nonrheumatic aortic (valve) stenosis Robert Baez MD 11/30/2018 R55 Syncope and collapse Robert Baez MD Plan of Treatment Future Appointment(s):11/15/2019 11:00 am - Robert Baez MD at [facility] Gastroenterology Functional Status Description No Information Available Mental Status Description No Information Available Referrals Description No Information Available
--- NOTE | 2019-06-03 20:53 | ED ---
Syncope/Near Syncope - HPI Summary HPI Summary: Pt is an 83 y/o M presenting to the ED with a chief complaint of syncope. He states he has been feeling dizzy intermittently over the last 4-5 weeks. He fell twice today, both episodes unwitnessed. He denies head injury, fever, cough , CP, SOB, N/V/D, or dysuria. He has been eating and drinking normally, and states he currently feels fine. - History Of Current Complaint Chief Complaint: EDWeakness Time Seen by Provider: 06/03/19 20:06 Hx Obtained From: Patient Onset/Duration: Sudden Onset, Lasting Minutes, Resolved Timing: Intermittent Episode Lasting - minutes Context: Unwitnessed, Loss Of Consciousness Activity At Onset: Unknown Associated Head Trauma: No Aggravating Factor(s): Nothing Alleviating Factor(s): Spontaneous Resolution Associated Signs And Symptoms: Dizzy Frequency: Episodes x___ - 2 today - Allergies/Home Medications Allergies/Adverse Reactions: Allergies Allergy/AdvReac Type Severity Reaction Status Date / Time allopurinol Allergy Rash Verified 06/03/19 19:54 Home Medications: Home Medications Clopidogrel 75 mg PO DAILY 06/03/19 [History Confirmed 06/03/19] PMH/Surg Hx/FS Hx/Imm Hx Previously Healthy: Yes Cardiovascular History: Reports: Hx Coronary Artery Disease, Hx Hypertension, Hx Myocardial Infarction - in 2005, Other Cardiovascular Problems/Disorders - DVT 2000 left leg Respiratory History: Denies: Other Respiratory Problems/Disorders GI History: Reports: Hx Gastroesophageal Reflux Disease - on medication, Other GI Disorders - Abebe's esophagus per H&P History: Denies: Other Problems/Disorders Musculoskeletal History: Reports: Other Musculoskeletal History - had gout once Sensory History: Reports: Hx Cataracts - Bilateral, Hx Contacts or Glasses - Reading glasses Denies: Hx Hearing Aid Opthamlomology History: Reports: Hx Cataracts - Bilateral, Hx Contacts or Glasses - Reading glasses Neurological History: Denies: Other Neuro Impairments/Disorders - Cancer History Cancer Type, Location and Year: skin CA Hx Chemotherapy: No - Surgical History Surgery Procedure, Year, and Place: [place] with cardiac stents[place], [place]. Basal cell skin lesion removed, right lower eyelid 2012 Hx Anesthesia Reactions: No Infectious Disease History: No Infectious Disease History: Denies: Traveled Outside the [place] in Last 30 Days - Family History Known Family History: Negative: Blood Disorder - Social History Alcohol Use: Daily Alcohol Amount: 2 scotch on the rocks after dinner Hx Substance Use: No Substance Use Type: Reports: None Hx Tobacco Use: No Smoking Status (MU): Never Smoked Tobacco Review of Systems - ROS Summary Review of Systems Summary: Home Medications Medication Instructions Recorded Confirmed Type Atorvastatin* [Lipitor 80 MG*] 80 mg PO DAILY 11/17/18 11/17/18 History Metoprolol Succinate XL TAB* 25 mg PO DAILY 11/17/18 11/17/18 History [Toprol XL TAB*] Pantoprazole TAB * [Protonix TAB*] 40 mg PO DAILY 11/17/18 11/17/18 History levETIRAcetam TAB* [Keppra TAB*] 500 mg PO BID #60 tab 11/18/18 Rx Negative: Fever Negative: Chest Pain Negative: Shortness Of Breath, Cough Negative: Vomiting, Diarrhea, Nausea Negative: dysuria Neurological: Other - dizziness Positive: Syncope All Other Systems Reviewed And Are Negative: Yes Physical Exam - Summary Physical Exam Summary: General: Well-developed, Well-nourished elderly male. No obvious distress. HEENT: Normocephalic, Atraumatic. Eyes: Conjuctiva normal, PERRL. Ears: TMs within normal limits. Nares: (-) discharge, (-) erythema. Oropharynx: Clear, mucous membranes moist, (-) exudates. Neck: Soft, FROM, (-) lymphadenopathy, (-) thyromegaly, (-) JVD. Cardiovascular: Normal sinus rhythm, 3/6 murmur. Lungs: Clear to auscultation bilaterally (-) wheezes, (-) rales, (-) rhonchi. Abdomen: Soft, non-tender, non-distended, (-) organomegaly, normal bowel sounds. Back: (-) CVA tenderness Extremities: No edema. Pts feet are unkempt. Skin: Warm, dry, (-) rash. Neuro: Alert and oriented x3, no focal deficits. Psychiatric: Mood normal, affect normal. Triage Information Reviewed: Yes Vital Signs On Initial Exam: Initial Vitals Temp Pulse Resp BP Pulse Ox 97.6 F 84 18 198/94 97 06/03/19 19:48 06/03/19 19:48 06/03/19 19:48 06/03/19 19:48 06/03/19 19:48 Vital Signs Reviewed: Yes Procedures - Sedation Patient Received Moderate/Deep Sedation with Procedure: No Diagnostics - Vital Signs Vital Signs Temp Pulse Resp BP Pulse Ox 06/03/19 19:48 97.6 F 84 18 198/94 97 - Laboratory Lab Results: Lab Results 06/03/19 06/03/19 Range/Units 20:29 20:29 WBC 10.1 (3.5-10.8) 10^3/uL RBC 4.60 (4.18-5.48) 10^6 /uL Hgb 15.2 (14.0-18.0) g/dL Hct 44 (42-52) % MCV 97 H (80-94) fL MCH 33 H (27-31) pg MCHC 34 (31-36) g/dL RDW 15 (10-15) % Plt Count 229 (150-450) 10^3/uL MPV 7.6 (7.4-10.4) fL Neut % (Auto) 86.4 % Lymph % (Auto) 4.6 % Bertie % (Auto) 8.9 % Eos % (Auto) 0.0 % Baso % (Auto) 0.1 % Absolute Neuts (auto) 8.8 H (1.5-7.7) 10^3/ul Absolute Lymphs (auto) 0.5 L (1.0-4.8) 10^3/ul Absolute Monos (auto) 0.9 H (0-0.8) 10^3/ul Absolute Eos (auto) 0.0 (0-0.6) 10^3/ul Absolute Basos (auto) 0.0 (0-0.2) 10^3/ul Absolute Nucleated RBC 0.0 10^3/ul Nucleated RBC % 0.0 INR (Anticoag Therapy) 0.97 (0.82-1.09) Result Diagrams: 06/03/19 20:29 06/03/19 20:29 Lab Statement: Any lab studies that have been ordered have been reviewed, and results considered in the medical decision making process. - Radiology CXR Radiology Interpretation Completed By: ED Physician Summary of Radiographic Findings: No infiltrate, no pleural effusion. Pending official radiology report. - EKG 2012 Cardiac Rate: NL - 82bpm EKG Rhythm: Sinus Rhythm ST Segment: Other Ectopy: None Summary of EKG Findings: EKG at 2012 shows NSR at [address] elevations in v1 and v2 and LVH. No acute changes, no ischemic changes. This EKG was reviewed and interpreted by Dr. Menendez. 2024 Cardiac Rate: NL - 87bpm EKG Rhythm: Sinus Rhythm ST Segment: Other Ectopy: None EKG Comparison: No Significant Change Summary of EKG Findings: EKG at 2024 shows NSR at 87bpm with ST elevations in v1 and v2 and LVH, no acute changes, no ischemic changes. This EKG was reviewed and interpreted by Dr. Menendez. Course/Dx Course Of Treatment: Pt is an 83 y/o M presenting to the ED with a chief complaint of syncope. He states he has been feeling dizzy intermittently over the last 4-5 weeks. He fell twice today, both episodes unwitnessed. He denies head injury, fever, cough, CP, SOB, N/V/D, or dysuria. On exam, pt is a well- nourished elderly male with a 3/6 murmur. His feet are unkempt. EKG at 2012 shows NSR at [address] elevations in v1 and v2 and LVH. No acute changes, no ischemic changes. This EKG was reviewed and interpreted by Dr. Menendez. EKG at 2024 shows NSR at 87bpm with ST elevations in v1 and v2 and LVH, no acute changes, no ischemic changes. This EKG was reviewed and interpreted by Dr. Menendez. Pts lab results significant for Anion Gap of 14, BUN of 44, Creatinine of 1.86, Magnesium of 1.7, Total Bilirubin of 2.20, AST of 97, Lactic Acid of 2.9, and Troponin I of 0.21. CXR shows: No infiltrate, no pleural effusion. 2114 - I spoke with Dr. Peraza who agrees that the pt is not having a STEMI. She will speak with the interventionalist and admit the pt to repeat the troponin at 2300. 2127 - Dr. Peraza called back to inform me that the pt could also be falling because of notable moderate-severe aortic stenosis. Pt's dx will include syncope, elevated troponin, and aortic stenosis. - Diagnoses Provider Diagnoses: Syncope, Elevated troponin, Aortic stenosis - Physician Notifications Discussed Care of Patient With: Palak Vázquez Time Discussed With Above Provider: 21:35 Instructed by Provider To: Admit As Inpatient Discharge ED - Sign-Out/Discharge Documenting (check all that apply): Patient Departure - Discharge Plan Condition: Stable Disposition: ADMITTED TO [facility] - Billing Disposition and Condition Condition: STABLE Disposition: Admitted to [facility] - Attestation Statements Document Initiated by Scribe: Yes Documenting Scribe: Liliana Barr Provider For Whom Paulo is Documenting (Include Credential): Anahi Menendez MD. Scribe Attestation: I, Liliana Barr, scribed for Anahi Menendez MD. on 06/04/19 at 0501. Scribe Documentation Reviewed: Yes Provider Attestation: The documentation as recorded by the zitaibLiliana pena accurately reflects the service I personally performed and the decisions made by me, Anahi Menendez MD. Status of Scribe Document: Viewed Consult Consult: 2114 - I spoke with Dr. Peraza who agrees that the pt is not having a STEMI. She will speak with the interventionalist and admit the pt to repeat the troponin at 2300. 2127 - Dr. Peraza called back to inform me that the pt could also be falling because of notable moderate-severe aortic stenosis. 2134 - I spoke with Dr. Vázquez who accepts the pt for admission.
[2019-06-03 20:55] LABS: ALT 30 U/L (7-52); AST 97 U/L (13-39); Albumin 4.4 g/dL (3.2-5.2); Albumin/Globulin Ratio 1.4 (1-3); Alkaline Phosphatase 96 U/L (34-104); Anion Gap 14 mmol/L (2-11); BUN/Creatinine Ratio 23.7 (8-20); Blood Urea Nitrogen 44 mg/dL (6-24); CO2 Carbon Dioxide 23 mmol/L (22-32); Calcium 9.9 mg/dL (8.6-10.3); Chloride 103 mmol/L (101-111); EGFR African American 42.1 (>60); EGFR Non-African American 34.8 (>60); Globulin 3.1 g/dL (2-4); Glucose 143 mg/dL (70-100); Magnesium 1.7 mg/dL (1.9-2.7); Potassium 3.5 mmol/L (3.5-5.0); Sodium 140 mmol/L (135-145); Total Protein 7.5 g/dL (6.4-8.9)
[2019-06-03 20:58] LABS: Troponin I 0.21 ng/mL (<0.04)
[2019-06-03] MEDS ORDERED: Aspirin 81 mg CHEW TAB* 81 MG TAB.CHEW PO ONE (21:24)
[2019-06-03 21:45] LABS: TSH (Thyroid Stimulating Horm) 0.92 mcIU/mL (0.34-5.60)
[2019-06-03 21:59] LABS: Urine Appearance Cloudy; Urine Bacteria Absent (Absent); Urine Bilirubin Negative (Negative); Urine Blood 3+ (Negative); Urine Color Amber; Urine Glucose 1+(50 mg/dL) (Negative); Urine Granular Casts Present (Absent); Urine Ketones Trace (Negative); Urine Nitrite Negative (Negative); Urine Protein 3+(>=500 mg/dL) (Negative); Urine Red Blood Cell 1+(3-5/hpf) (Absent); Urine Specific Gravity 1.026 (1.010-1.030); Urine Squamous Epithelial Cell Present (Absent); Urine Urobilinogen Negative (Negative); Urine White Blood Cell Trace(0-5/hpf) (Absent)
[2019-06-03] MEDS ORDERED: Metoprolol Tartrate TAB* 25 MG PO ONE (22:09)
[2019-06-03 22:59] LABS: Creatine Kinase 5338 U/L (10-223)
[2019-06-03] MEDS ORDERED: Magnesium Sulfate 1 GM IV* 1 GM/100 ML BAG IV ONE (23:09)
[2019-06-03 23:21] LABS: Alcohol < 10 mg/dL (<10)
[2019-06-03] MEDS ORDERED: Thiamine INJ* 100 MG/ML 2 ML VIAL IM ONE (23:33)
[2019-06-03] MEDS ORDERED: Acetaminophen TAB* 325 MG PO PRN (23:33)
[2019-06-04 00:18] LABS: Troponin I 0.22 ng/mL (<0.04)
[2019-06-04] MEDS: Lactated Ringers 1000 ML Bag* 1,000 ML IV SCH ×2 (00:53→16:07)
--- NOTE | 2019-06-04 01:45 | HP ---
CC: Dr. Robert Baez; Dr. Canchola * HISTORY AND PHYSICAL: DATE OF ADMISSION: 06/03/19 TIME OF EVALUATION: 9:45 p.m. PRIMARY CARE PROVIDER: Robert Baez MD TAPE DECK INSTALLER: Dr. Canchola. CHIEF COMPLAINT: "I fell." HISTORY OF PRESENT ILLNESS: Mr. Teague is an 83-year-old male with a past medical history of hypertension, coronary artery disease, hyperlipidemia, lower extremity DVT, gout, GERD with Abebe's esophagus, BPH, severe aortic stenosis , diastolic congestive heart failure, admission in November 2018 for a subdural hematoma who presents to the emergency room after multiple falls at home. Some of the history is obtained from the patient and others from his friend at the bedside. The patient's friend states that he was doing well at home until yesterday afternoon. He states that he heard a noise and he went to check on the patient and found him on the floor. He asked for help. They were able to put the patient back on a chair and the patient states that he was feeling well at that time. At bedtime, he knocked on the patient's door, but no one opened and he assumed that the patient was already sleeping. He went out in the morning and when he returned around 12:30, he was told that the patient was still in his room, so when he went to check on him, he found the patient on the floor. The patient denies chest pain, palpitations, dizziness, lightheadedness, nausea, vomiting, or any other complaints. He does not know how he fell and he is not sure if he spent the whole night on the floor as his friend suspects. EMS was called at that time and as per his friend, his vital signs were normal and he refused transport to the hospital. Later today, the patient's friend found him on the floor once again and decided that he should come to the emergency room for further evaluation. In the emergency room, the patient was noted to be hypertensive, but he had no other complaints. His friend tells me that the patient had issues with alcohol in the past, but had been sober for a long time, but he knows that he had some scotch yesterday and wonders if this may be playing a role in his falls. PAST MEDICAL HISTORY: 1. Coronary artery disease status post stent to LAD with total occlusion to adjacent diagonal vessel. 2. Severe aortic stenosis on his last echo in April 2019. 3. Abebe's esophagus. 4. BPH. 5. Diverticulosis. 6. GERD. 7. Gout. 8. Lower extremity DVT. 9. Admission in November 2018 for a subdural hemorrhage. MEDICATION LIST: 1. Atorvastatin 80 mg p.o. daily. 2. Clopidogrel 75 mg p.o. daily. 3. Metoprolol succinate 25 mg p.o. daily. 4. Pantoprazole 40 mg p.o. daily. ALLERGIES: To ALLOPURINOL. FAMILY HISTORY: Father had a history of CHF. Mother of an accident. 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 No history of tobacco or drug use. His friend at the bedside endorses history of alcohol abuse in the past and on his prior H and P, it was reported that he still had 1 to 2 scotches at night. Surrogate decision maker is his roommate and member of his hindu order, Mindi Murillo, phone number is [phone]. REVIEW OF SYSTEMS: A 14-point review of systems was performed, and all the pertinent negative and positive findings are in the HPI. PHYSICAL EXAMINATION GENERAL: The patient is a pleasant elderly gentleman, lying in the ED stretcher , in no acute distress. VITAL SIGNS: Temperature 97.9, heart rate 83, respiratory rate is 20, oxygen saturation is 98% on room air, blood pressure is 190/90. HEENT: Pupils are equal. Moist mucous membranes. CHEST: Breath sounds bilaterally with no added sounds. CVS: Normal S1, S2. Regular rate and rhythm with a loud systolic murmur. ABDOMEN: Soft, nontender, nondistended. Bowel sounds are present. EXTREMITIES: Trace edema. NEURO: He is alert, oriented x3. Face is symmetric. Speech is clear. He is able to move all 4 extremities, but appears to be deconditioned. Power is 4/5 in both upper extremities and 3/5 in both lower extremities and as per the patient, this is not new to him. SKIN: The patient has skin tears on his left forearm and left thigh. DIAGNOSTIC STUDIES/LAB DATA: The patient had a CBC that showed WBC of 10.1, hemoglobin of 15.2, hematocrit of 44, MCV of 97, MCH of 33, platelets of 229. INR is 0.97. Chemistry showed a sodium of 140, potassium 3.5, chloride 103, bicarb 23, anion gap 14, BUN 44, creatinine 1.8, glucose of 143. Lactic acid is 2.9. Calcium is 9.9. Magnesium is 1.7. Total bilirubin is 2.2, AST is 97, ALT is 30. CPK is 5338. Troponin is 0.21. TSH is 0.92. Urinalysis showed 3+ protein, 3+ blood, 1+ rbc's, squamous epithelial cells are present with hyaline and granular casts as well as 1+ glucose. CT of the brain without contrast showed no new or acute hemorrhage, mass defect or shift, interval decrease in size of small right subdural collection seen on the patient's prior examination from December. Findings consistent with small vessel ischemic change/microangiopathy. If further evaluation for recent acute or subacute ischemic changes is indicated, MRI correlation is suggested. Chest x-ray was not yet officially read, but it shows no acute pulmonary disease to my read. There is no recent chest x-ray to compare. The last one in the system is from 2002. EKG done on 06/03/19 at 8:13 p.m. showed sinus rhythm at 82 beats per minute with LVH criteria and ST elevations in V1 and V2, T wave inversions in V4, V5, and V6, those were present in November 2018, but they are more pronounced now. Followup EKG done at 8:25 p.m. showed similar findings. ASSESSMENT AND PLAN: Mr. Teague is an 83-year-old male with a past medical history of coronary artery disease status post stent, severe aortic stenosis, reported history of alcohol abuse, recent admission for subdural hematoma who presents to the emergency room after multiple falls, found to have EKG changes and troponin elevation. 1. Falls. The whole picture is not completely clear at this time. From the patient's friend, it sounds like he was asymptomatic during the day and his friend thinks his first fall was after he drank some scotch. The patient denies chest pain, palpitations, shortness of breath, or other symptoms, but his EKG changes are more pronounced than before and his first troponin is 0.21. This could be secondary to acute coronary artery disease or demand ischemia in the setting of fall, dehydration, and known severe aortic stenosis. The case was discussed with Cardiology (Dr. Peraza) and at this point, we are going to continue medical management and the patient will be seen in consultation. He received aspirin in the emergency room. CT brain shows that his subdural is improved when compared to December. We will continue his Plavix. I do not think a heparin drip is indicated at this time, but we will continue to trend his troponin and monitor on telemetry. Another possibility is that his falls were actually syncopal episodes associated with his severe aortic stenosis. We will repeat his echocardiogram to look for left ventricle wall motion abnormalities. He will be kept n.p.o. for now as per Cardiology recommendation if a procedure is required in the morning. We will continue his metoprolol and atorvastatin. The patient's CPK is elevated suggesting that he spent some prolonged time on the floor and may be that is the reason why he has minimal troponin elevation. He will receive gentle IV hydration and we will monitor his CPK. 2. Acute kidney injury. I suspect this is secondary to dehydration as the patient has not eaten or drank much today, so he will receive gentle IV hydration and we will monitor his renal function. 3. Lactic acidosis. The patient has no signs of infection at this time and I believe this is secondary to dehydration. We will continue IV fluids. 4. Reported history of alcohol abuse. I will check an alcohol level and the patient will be on a [place] protocol. He has no signs of withdrawal at this time, but for any elevated blood pressure, we will continue to monitor. He does have macrocytosis that would suggest chronic alcohol intake. We will check a B12 and folate level. 5. Gastroesophageal reflux disease. We will continue PPI. 6. Hypomagnesemia. We will replete. 7. LFT elevation. Suspect this is likely secondary to alcohol intake, but we would check a right upper quadrant ultrasound as the patient has a prior history of cholelithiasis. 8. DVT prophylaxis. The patient has a score of 6 on the DVT Prophylaxis Assessment Guide. He will have SCDs. As he is already on Plavix, we will avoid heparin for now in the setting of his subdural hematoma in case Cardiology decides that he needs to be on dual antiplatelet therapy. 9. Code status is full. TIME SPENT: Approximately 65 minutes was spent with patient and friend interview, medical records review, physical examination to complete the admission; more than half of this time was spent [id number] with the patient and coordination of care. [id number]/[facility] #: [id number] MILADY
[2019-06-04 03:12] LABS: Troponin I 0.23 ng/mL (<0.04)
[2019-06-04 07:03] LABS: ABS Lymphocytes 1.1 10^3/ul (1.0-4.8); ABS Monocytes 0.9 10^3/ul (0-0.8); ABS Neutrophils 4.7 10^3/ul (1.5-7.7); Eosinophil % 0.4 %; Hematocrit 40 % (42-52); Hemoglobin 13.7 g/dL (14.0-18.0); Lymphocyte % 16.4 %; Mean Corpuscular HGB Conc 34 g/dL (31-36); Mean Corpuscular Hemoglobin 34 pg (27-31); Mean Corpuscular Volume 98 fL (80-94); Mean Platelet Volume 7.5 fL (7.4-10.4); Platelet Count 184 10^3/uL (150-450); Red Blood Count 4.08 10^6 /uL (4.18-5.48); Red Cell Distribution Width 15 % (10-15); White Blood Count 6.7 10^3/uL (3.5-10.8)
[2019-06-04 07:17] LABS: ALT 28 U/L (7-52); AST 94 U/L (13-39); Albumin 3.7 g/dL (3.2-5.2); Albumin/Globulin Ratio 1.5 (1-3); Alkaline Phosphatase 77 U/L (34-104); Anion Gap 10 mmol/L (2-11); BUN/Creatinine Ratio 24.9 (8-20); Blood Urea Nitrogen 45 mg/dL (6-24); CO2 Carbon Dioxide 23 mmol/L (22-32); Calcium 8.8 mg/dL (8.6-10.3); Chloride 106 mmol/L (101-111); EGFR African American 43.4 (>60); EGFR Non-African American 35.9 (>60); Globulin 2.4 g/dL (2-4); Glucose 125 mg/dL (70-100); Potassium 3.3 mmol/L (3.5-5.0); Sodium 139 mmol/L (135-145); Total Protein 6.1 g/dL (6.4-8.9)
[2019-06-04 08:13] LABS: Folate 9.41 ng/mL (>3.99)
[2019-06-04] MEDS: Multivitamins/Minerals TAB PO SCH (10:06)
[2019-06-04] MEDS: Atorvastatin* 80 MG TAB PO SCH (10:09)
[2019-06-04] MEDS: Folic Acid TAB* 1 MG PO SCH (10:09)
[2019-06-04] MEDS: Thiamine TAB* 100 MG TAB PO SCH (10:10)
[2019-06-04] MEDS: Pantoprazole TAB * 40 MG TAB PO SCH (10:10)
[2019-06-04] MEDS: Aspirin EC TAB* 81 MG TAB.EC PO SCH (10:10)
[2019-06-04] MEDS: Clopidogrel TAB* 75 MG PO SCH (10:11)
[2019-06-04] MEDS: Metoprolol Succinate XL TAB* 25 MG PO SCH (10:11)
[2019-06-04] MEDS ORDERED: Perflutren Lipid Microsphere* 3 ML VIAL ONE (11:12)
--- NOTE | 2019-06-04 13:06 | ECHO ---
*[facility]* [place] [address] Fax #: [phone] Limited Transthoracic Echocardiogram Patient: Merrick Teague : 1935 Study Date: 06/04/2019 Age: 83 Gender: M HR: 66 bpm Height: 66.9 in /170 cm BSA: 1.87 m^2 Weight: 160.6 lb /73 kg BMI: 25.3 kg/m^2 *Scroll Saw Operator: Layne Mensah [facility] *Referring Physician: * Palak BolivarReading Physician: * Son Canchola MD Indications: Elevated TROPs. History: Coronary artery disease. Aortic stenosis. Risk factors: Hypertension. Dyslipidemia. Labs, prior tests, procedures, and surgery: Catheterization. There was a stenosis which was treated with a stent. Conclusions Summary: - Left ventricle: Wall thickness is mildly to moderately increased. Systolic function is normal. The estimated ejection fraction is 55-60%. Wall motion is normal; there are no regional wall motion abnormalities. - Pericardium, extracardiac: There is no significant pericardial effusion. - Limited study to evaluate left ventricle function. Patient has known severe aortic stenosis evaluated on full echocardiogram 04/10/19. Study data: Transthoracic echocardiogram, limited study. Procedure: Transthoracic echocardiography was performed. Image quality was adequate. Intravenous Definity , 3 mls was administered. Location: Bedside. Patient status: Inpatient. Patient room number: 450 02. Rhythm: Normal sinus rhythm. Findings Left ventricle: Wall thickness is mildly to moderately increased. Systolic function is normal. The estimated ejection fraction is 55-60%. Wall motion is normal; there are no regional wall motion abnormalities. Right ventricle: The cavity size is normal. Systolic function is normal. Left atrium: The atrium is dilated. Right atrium: The atrium is dilated. Pericardium: There is no significant pericardial effusion. Prepared and electronically signed by Son Canchola MD 06/04/2019 13:05
--- NOTE | 2019-06-04 16:25 | PN ---
Subjective Date of Service: 06/04/19 Interval History: Patient has no complaints. He tells me he feels well. Denies chest pain, neck/ jaw/arm pain, difficulty breathing, fever/chills, abd pain, nausea. Reports bleeding wound on back that has scant blood to his shirts daily for approx one year. Tells me it has never been evaluated by a physician. Objective Active Medications: Acetaminophen (Tylenol Tab*) 650 mg PO Q4H PRN PRN Reason: Mild pain or temp >100.4 Aspirin (Aspirin Ec Tab*) 81 mg PO DAILY [facility] Last Admin: 06/04/19 10:10 Dose: 81 mg Atorvastatin Calcium (Lipitor*) 80 mg PO DAILY [facility] Last Admin: 06/04/19 10:09 Dose: 80 mg Clopidogrel Bisulfate (Plavix Tab*) 75 mg PO DAILY [facility] Last Admin: 06/04/19 10:11 Dose: 75 mg Folic Acid (Folvite Tab*) 1 mg PO DAILY [facility] Last Admin: 06/04/19 10:09 Dose: 1 mg Lactated Ringer's (Lactated Ringers 1000 Ml Bag*) 1,000 mls @ 75 mls/hr IV PER RATE [facility] Last Admin: 06/04/19 16:07 Dose: 75 mls/hr Lorazepam (Ativan Tab(*)) 0 - 6 mg PO .PER [facility] PROTOCOL [facility]; Protocol Metoprolol Succinate (Toprol Xl Tab*) 25 mg PO DAILY [facility] Last Admin: 06/04/19 10:11 Dose: 25 mg Multivitamins/Minerals (Theragran/Minerals Tab*) 1 tab PO DAILY [facility] Last Admin: 06/04/19 10:06 Dose: 1 tab Pantoprazole Sodium (Protonix Tab*) 40 mg PO DAILY [facility] Last Admin: 06/04/19 10:10 Dose: 40 mg Thiamine HCl (Vitamin B-1 Tab*) 100 mg PO DAILY [facility] Last Admin: 06/04/19 10:10 Dose: 100 mg Vital Signs - 8 hr 06/04/19 06/04/19 06/04/19 09:02 11:04 11:48 Temperature 97.8 F 98.1 F Pulse Rate 61 72 Respiratory 16 16 16 Rate Blood Pressure 167/69 162/65 (mmHg) O2 Sat by Pulse 100 100 Oximetry 06/04/19 13:30 Temperature 98.3 F Pulse Rate 86 Respiratory 16 Rate Blood Pressure 134/56 (mmHg) O2 Sat by Pulse 96 Oximetry Oxygen Devices in Use Now: None Appearance: Elderly, white male, laying in bed Eyes: No Scleral Icterus Ears/Nose/Mouth/Throat: Mucous Membranes Moist Neck: NL Appearance and Movements; NL JVP Respiratory: Symmetrical Chest Expansion and Respiratory Effort, Clear to Auscultation Cardiovascular: RRR, - - grade 2 systolic murmur Abdominal: - - abd soft, nontender, nondistended Extremities: No Edema, No Clubbing, Cyanosis Skin: - - approx 1.5 cm diameter wound on back, approx T6 level, no surrounding erythema, shallow with scant blood, no purulent drainage Neurological: Alert and Oriented x 3, NL Muscle Strength and Tone, - - faint hand tremors Result Diagrams: 06/04/19 06:49 06/04/19 06:49 Additional Lab and Data: Lab Results 06/03/19 06/03/19 Range/Units 20:29 20:29 WBC 10.1 (3.5-10.8) 10^3/uL RBC 4.60 (4.18-5.48) 10^6 /uL Hgb 15.2 (14.0-18.0) g/dL Hct 44 (42-52) % MCV 97 H (80-94) fL MCH 33 H (27-31) pg MCHC 34 (31-36) g/dL RDW 15 (10-15) % Plt Count 229 (150-450) 10^3/uL MPV 7.6 (7.4-10.4) fL Neut % (Auto) 86.4 % Lymph % (Auto) 4.6 % [place] % (Auto) 8.9 % Eos % (Auto) 0.0 % Baso % (Auto) 0.1 % Absolute Neuts (auto) 8.8 H (1.5-7.7) 10^3/ul Absolute Lymphs (auto) 0.5 L (1.0-4.8) 10^3/ul Absolute Monos (auto) 0.9 H (0-0.8) 10^3/ul Absolute Eos (auto) 0.0 (0-0.6) 10^3/ul Absolute Basos (auto) 0.0 (0-0.2) 10^3/ul Absolute Nucleated RBC 0.0 10^3/ul Nucleated RBC % 0.0 INR (Anticoag Therapy) 0.97 (0.82-1.09) Assess/Plan/Problems-Billing Assessment: 83 yo white male with PMHx severe , CAD, GERD with Abebe's, BPH, and alcohol use presents after being found on the floor at home. - Patient Problems (1) GOOD (acute kidney injury) Current Visit: Yes Status: Acute Code(s): N17.9 - ACUTE KIDNEY FAILURE, UNSPECIFIED SNOMED Code(s): 42157079 Comment: -2/2 rhabdomyolysis, was on floor for unknown period of time -improving -received IVF -will repeat CPK tomorrow (2) Fall Current Visit: Yes Status: Acute Comment: -unclear etiology -echo with EF 55-60%. Recent echo last month with severe -pending PT evaluation (3) Elevated troponin Current Visit: Yes Status: Acute Code(s): R79.89 - OTHER SPECIFIED ABNORMAL FINDINGS OF BLOOD CHEMISTRY SNOMED Code(s): 171904468 Comment: -peaked at 0.23, downtrended to 0.20 -appreciate cardiology consult, no intervention at this time -continue medical mgmt for CAD as below and starting aspirin (4) Bleeding from wound Current Visit: Yes Status: Acute Code(s): T14.8XXA - OTHER INJURY OF UNSPECIFIED BODY REGION, INITIAL ENCOUNTER SNOMED Code(s): 082319938 Comment: -patient describes wound on back to have scant bleeding for approx one year -recommended outpatient dermatology f/u for biopsy -no signs of infection (5) CAD (coronary artery disease) Current Visit: Yes Status: Acute Code(s): I25.10 - ATHSCL HEART DISEASE OF [place] CORONARY ARTERY W/O ANG PCTRS SNOMED Code(s): 58843111 Comment: -cont statin, plavix, metoprolol -started asa (6) BPH (benign prostatic hyperplasia) Current Visit: Yes Status: Acute Code(s): N40.0 - BENIGN PROSTATIC HYPERPLASIA WITHOUT LOWER URINRY TRACT SYMP SNOMED Code(s): 716093738 Comment: -no medications at home -no reports of retention (7) Alcohol use Current Visit: Yes Status: Acute Code(s): Z72.89 - OTHER PROBLEMS RELATED TO LIFESTYLE SNOMED Code(s): 547472 Comment: -patient's friend reports patient has been drinking scotch regularly -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 Continue WAM protocol for now (8) GERD (gastroesophageal reflux disease) Current Visit: Yes Status: Acute Code(s): K21.9 - GASTRO-ESOPHAGEAL REFLUX DISEASE WITHOUT ESOPHAGITIS SNOMED Code(s): 902362321 Comment: -continue PPI (9) Aortic stenosis, severe Current Visit: No Status: Acute Code(s): I35.0 - NONRHEUMATIC AORTIC (VALVE ) STENOSIS SNOMED Code(s): 94111019 Comment: -as discussed above -possibly cause of fall though patient is poor historian regarding how he ended up being found on the floor (10) Full code status Current Visit: Yes Status: Acute Code(s): Z78.9 - OTHER SPECIFIED HEALTH STATUS SNOMED Code(s): 253325874 (11) DVT prophylaxis Current Visit: Yes Status: Acute Code(s): Z29.9 - ENCOUNTER FOR PROPHYLACTIC MEASURES, UNSPECIFIED SNOMED Code(s): 157837903 Comment: -SCDs considering small subdural hematoma (improved since December 2018) Status and Disposition: Cannot return to [place] where he lives, pending likely [facility] placement, PT eval pending
--- NOTE | 2019-06-04 20:11 | CONS ---
CC: Dr. Baez, [facility] * CARDIOLOGY CONSULTATION: DATE OF CONSULT: 06/04/19 INDICATION FOR CONSULTATION: Aortic stenosis, abnormal troponin. HISTORY OF PRESENT ILLNESS: Fr. Teague is an 83-year-old gentleman with a history of coronary artery disease, known severe aortic stenosis, history of falls and possible seizure. He was admitted to the hospital after multiple falls at his place of residence. 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 He apparently had a fall a couple of days ago, was trapped behind the bed. When the ambulance arrived, they asked if he wanted to go to the hospital and he said no. He denied any symptoms at that time. The patient apparently had another episode where he fell down and was brought to the emergency room. In speaking with the patient, he denies any angina. He denies any shortness of breath. Denies any palpitations. He denies any lightheadedness or dizziness. He does not recall the episodes of falling. He thinks both of them occurred when he just fell out of bed. The patient was admitted to the hospital in November 2018 where he fell out of bed and had a small subdural hematoma. When I had seen him in the office in April, he had no complaints at that time. On my notes, he was taking Keppra at that time, but was not taking aspirin or Plavix. PAST MEDICAL HISTORY: Significant for: 1. Heart disease. The patient had a cardiac catheterization in December 2007. At that time, his stent to his LAD was open and patent. He had an occluded diagonal vessel, which filled the collaterals. He had significant disease to his PDA, was a small atretic vessel. No intervention was done. Echocardiogram at my office in April 2019 showed normal LV size and systolic function. He has severe aortic stenosis with a peak velocity of 4.3 m/sec and a mean systolic gradient of 41 mmHg, calculated valve area of 0.9 cm2. No other significant valvular abnormality. 2. History of BPH. 3. Gastroesophageal reflux disease. 4. Gout. 5. Abebe's esophagus. Hospitalizations, he had a DVT in April 2000. He also had a subdural hematoma in November 2018. OUTPATIENT MEDICATIONS: 1. Keppra 500 mg twice a day. 2. Metoprolol succinate 25 mg a day. 3. Lipitor 80 mg a day. 4. Protonix 40 mg a day. ALLERGIES: To ALLOPURINOL. 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 He denies tobacco use. Question of the amount of alcohol he takes. Does not get any regular exercise. FAMILY HISTORY: Was not obtained. REVIEW OF SYSTEMS: Negative for fevers or chills. Negative for changes in bowel or bladder habits. Negative for change in weight. PHYSICAL EXAMINATION: Height is 5 feet 7 inches, weight is 178 pounds. Temperature 98.3, heart rate is 86, blood pressure 134/56, respiratory rate is 16, oxygen saturation 96% on room air. Sclerae anicteric. Oropharynx is pink without erythema. Carotids are 2+ with soft bilateral bruits. JVD is normal. Thyroid is normal. Cardiac Exam: S1, S2 with a 3/6 systolic ejection murmur heard best at the left upper sternal border. PMI is normal. Lungs are clear to auscultation bilaterally. There is no dullness to percussion. Abdomen is soft, nontender, and nondistended with normoactive bowel sounds. Extremities show no edema. He has 2+ pulses throughout. The patient is awake and alert. I cannot tell whether he is oriented. DIAGNOSTIC STUDIES/LAB DATA: Laboratory studies: CBC within normal limits. Chemistry is within normal limits with potassium little low at 3.3, BUN 25, creatinine 1.8. AST and ALT are essentially normal. His troponin level is initially 0.21, peaked at 0.23 and then back down to 0.2. TSH is normal. An echocardiogram today showed his LV function is still normal. Valvular assessment was not done. 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 At this point, I am not convinced that his cardiac status has any impact on his falls. I do not think he has any exertional syncope. He denied any chest pain. He denied any palpitations. His minimally elevated troponin level is likely due to the stress after being trapped on the floor when he fell on the bed. At this point, I am not convinced that any medication changes are necessary. I am not convinced the patient needs a cardiac catheterization or a stress test. My recommendation is to continue to treat him medically. This was discussed in great detail with Dr. Baez, his outpatient primary care physician. [id number]/[facility] #: [id number] MILAD[place]
[2019-06-04] MEDS: KCL 20 MEQ/100 ML IVPREMIX* 20 MEQ/100 ML BAG IV SCH (21:44)
[2019-06-05] MEDS: LORazepam TAB(*) 1 MG PO SCH ×2 (04:27→07:23)
[2019-06-05] MEDS: KCL 20 MEQ/100 ML IVPREMIX* 20 MEQ/100 ML BAG IV SCH ×4 (05:01→17:18)
[2019-06-05 07:04] LABS: Albumin 3.6 g/dL (3.2-5.2); Albumin/Globulin Ratio 1.6 (1-3); BUN/Creatinine Ratio 23.1 (8-20); Calcium 8.8 mg/dL (8.6-10.3); EGFR African American 50.1 (>60); EGFR Non-African American 41.4 (>60); Globulin 2.3 g/dL (2-4); Magnesium 1.9 mg/dL (1.9-2.7); Potassium 3.1 mmol/L (3.5-5.0); Total Bilirubin 1.9 mg/dL (0.2-1.0); Total Protein 5.9 g/dL (6.4-8.9)
[2019-06-05] MEDS ORDERED: hydrALAZINE IV* 20 MG/ML VIAL IV SLOW PU PRN ×3 (07:04→16:28)
[2019-06-05] MEDS: Metoprolol Succinate XL TAB* 25 MG PO SCH (07:23)
[2019-06-05] MEDS ORDERED: LORazepam TAB(*) 1 MG PO SCH (08:39)
[2019-06-05] MEDS ORDERED: KCL 20 MEQ/100 ML IVPREMIX* 20 MEQ/100 ML BAG IV SCH (09:00)
[2019-06-05] MEDS ORDERED: KCL 20 MEQ/100 ML IVPREMIX* 20 MEQ/100 ML BAG IV ONE (09:00)
[2019-06-05] MEDS: Clopidogrel TAB* 75 MG PO SCH (10:27)
[2019-06-05] MEDS: Thiamine TAB* 100 MG TAB PO SCH (10:27)
[2019-06-05] MEDS: Folic Acid TAB* 1 MG PO SCH (10:27)
[2019-06-05] MEDS: Multivitamins/Minerals TAB PO SCH (10:27)
[2019-06-05] MEDS: Pantoprazole TAB * 40 MG TAB PO SCH (10:27)
[2019-06-05] MEDS: Atorvastatin* 80 MG TAB PO SCH (10:27)
[2019-06-05] MEDS: Aspirin EC TAB* 81 MG TAB.EC PO SCH (10:27)
--- NOTE | 2019-06-05 14:36 | CONSULT ---
Subjective Date of Service: 06/05/19 Interval History: Mr. Teague is an 83 yo male with PMH significant for CAD, severe , Abebe's esophagus, BPH, diverticulosis, GERD, GOUT, LE DVT, and SDH; who presented to the hospital with complaints of a fall. He was admitted for falls, GOOD and lactic acidosis. He presented to the hospital with an open area on his back, this has been present for awhile per the patient. It often drains fluid. He was also found to have skin tears to the left arm and leg from a fall. Patient seen and examined at bedside. Family History: Unchanged from Admission Social History: Unchanged from Admission Past Medical History: Unchanged from Admission Review of Systems - Measurements Intake and Output: Intake and Output Last 24 Hours 06/03/19 06/04/19 06/05/19 06/06/19 06:59 06:59 06:59 06:59 Intake Total 1461 1420 458 Output Total 25 Balance 1461 1395 458 Weight 178 lb Intake: IV Fluids 1461 660 358 LR 461 660 358 Medicated IV 100 Potassium 100 Oral 760 0 Output: Urine 25 Other: Estimated Void Medium - Review of Systems General Comments: Unable to perform ROS as Pt is sedated at this time. Objective Active Medications: Acetaminophen (Tylenol Tab*) 650 mg PO Q4H PRN Reason: Mild pain or temp >100.4 Amlodipine Besylate (Norvasc Tab*) 5 mg PO DAILY [facility] Aspirin (Aspirin Ec Tab*) 81 mg PO DAILY [facility] Atorvastatin Calcium (Lipitor*) 80 mg PO DAILY [facility] Clopidogrel Bisulfate (Plavix Tab*) 75 mg PO DAILY [facility] Folic Acid (Folvite Tab*) 1 mg PO DAILY [facility] Hydralazine HCl (Apresoline Iv*) 10 mg IV SLOW PU Q6H PRN Reason: HTN Lactated Ringer's (Lactated Ringers 1000 Ml Bag*) @ 75 mls/hr IV PER RATE [facility] Lorazepam (Ativan Tab(*)) 0 - 6 mg PO .PER [facility] PROTOCOL [facility]; Protocol Metoprolol Succinate (Toprol Xl Tab*) 25 mg PO DAILY [facility] Multivitamins/Minerals (Theragran/Minerals Tab*) 1 tab PO DAILY [facility] Pantoprazole Sodium (Protonix Tab*) 40 mg PO DAILY [facility] Thiamine HCl (Vitamin B-1 Tab*) 100 mg PO DAILY [facility] Vital Signs 06/05/19 06/05/19 06/05/19 08:26 09:56 11:15 Temperature 97 F Pulse Rate 70 Respiratory 18 18 20 Rate Blood Pressure 200/87 (mmHg) O2 Sat by Pulse 98 Oximetry Oxygen Devices in Use Now: None Appearance: NAD, laying in bed Ears/Nose/Mouth/Throat: Mucous Membranes Moist Respiratory: Symmetrical Chest Expansion and Respiratory Effort Skin: - - See skin note below Neurological: - - Sedated, unable to determine orientation Result Diagrams: 06/04/19 06:49 06/05/19 06:40 Additional Lab and Data: Lab Results 06/03/19 06/03/19 Range/Units 20: 20:29 WBC 10.1 (3.5-10.8) 10^3/uL RBC 4.60 (4.18-5.48) 10^6 /uL Hgb 15.2 (14.0-18.0) g/dL Hct 44 (42-52) % MCV 97 H (80-94) fL MCH 33 H (27-31) pg MCHC 34 (31-36) g/dL RDW 15 (10-15) % Plt Count 229 (150-450) 10^3/uL MPV 7.6 (7.4-10.4) fL Neut % (Auto) 86.4 % Lymph % (Auto) 4.6 % [place] % (Auto) 8.9 % Eos % (Auto) 0.0 % Baso % (Auto) 0.1 % Absolute Neuts (auto) 8.8 H (1.5-7.7) 10^3/ul Absolute Lymphs (auto) 0.5 L (1.0-4.8) 10^3/ul Absolute Monos (auto) 0.9 H (0-0.8) 10^3/ul Absolute Eos (auto) 0.0 (0-0.6) 10^3/ul Absolute Basos (auto) 0.0 (0-0.2) 10^3/ul Absolute Nucleated RBC 0.0 10^3/ul Nucleated RBC % 0.0 INR (Anticoag Therapy) 0.97 (0.82-1.09) Skin Deviation Note - Skin Deviation Findings Left elbow - Superficial open area, measures 2 cm x 2 cm x 0.1 cm. The wound base is red granulation tissue. The periwound has black crusting. The surrounding skin is intact. There is serous drainage. Left lower leg - Open area, measures 4 cm x 2.5 cm x 0.1 cm. The wound base is red granulation tissue with foster slough. The surrounding skin is intact. There is a small amount of serous drainage. Mid back - There is a wound present, there is an area that measures 2 x 1.8 cm with a superficial open area, that measures 1.3 cm x 1.3 cm x 0.1 cm. The wound base is red granulation tissue. There was a small amount of serous drainage in the bedding. The surrounding skin is intact. Wound Problem/Plan Assessment: Mr. Teague is an 83 yo male with PMH significant for CAD, severe , Abebe's esophagus, BPH, diverticulosis, GERD, GOUT, LE DVT, and SDH; who presented to the hospital with complaints of a fall. He was admitted for falls, GOOD and lactic acidosis. He presented to the hospital with an open area on his back, and skin tears to the left arm and leg. 1. Non pressure chronic wound to back. Unclear cause, diff dx: skin shearing vs other cause. According to the record this has been present for about a year, with drainage present. Recommend applying ABX ointment, followed by telfa island dressing, and change daily. Consider skin BX outpatient. If there is a large amount of drainage apply calcium alginate and change dressing every other day or as needed. 2. Left arm and leg skin tears. Wash the area with soap and water, apply border foam gauze (Optifoam) and change every 3 days. Monitor area on leg, this may require debridement. 3. Diet. Regular diet. 4. Code Status. Full Code Status. 5. Disposition. Inpatient, disposition per primary medicine team. TIME SPENT: Time for this wound consult was 25 minutes and 15 minutes was spent with the patient assessing, measuring, and photographing the wounds. Is Patient a Wound Clinic Patient: No Attending: Denisse Nunez
[2019-06-05] MEDS: amLODIPine TAB* 5 MG PO SCH (14:52)
[2019-06-05] MEDS ORDERED: Labetalol IV* 5 MG/ML 20 ML VIAL IV PUSH PRN (17:21)
--- NOTE | 2019-06-05 17:35 | PN ---
Subjective Date of Service: 06/05/19 Interval History: Patient scored on WAM early this morning and received 4mg ativan. Has been quite sedated from that dose until afternoon. I evaluated patient in the afternoon and he was overall to his baseline. Patient visited by [facility]idi from [facility], confirmed that he is not able to return to the [facility] and agrees that [facility] is best plan for patient. Patient has no complaints at time of evaluation. Endorses that he is thirsty. He denies chest pain, difficulty breathing, fever/chills, abd pain. Family History: Unchanged from Admission Social History: Unchanged from Admission Past Medical History: Unchanged from Admission Objective Active Medications: Acetaminophen (Tylenol Tab*) 650 mg PO Q4H PRN PRN Reason: Mild pain or temp >100.4 Amlodipine Besylate (Norvasc Tab*) 5 mg PO DAILY [facility] Last Admin: 06/05/19 14:52 Dose: 5 mg Aspirin (Aspirin Ec Tab*) 81 mg PO DAILY [facility] Last Admin: 06/05/19 10:27 Dose: Not Given Atorvastatin Calcium (Lipitor*) 80 mg PO DAILY [facility] Last Admin: 06/05/19 10:27 Dose: Not Given Clopidogrel Bisulfate (Plavix Tab*) 75 mg PO DAILY [facility] Last Admin: 06/05/19 10:27 Dose: Not Given Folic Acid (Folvite Tab*) 1 mg PO DAILY [facility] Last Admin: 06/05/19 10:27 Dose: Not Given Hydralazine HCl (Apresoline Iv*) 10 mg IV SLOW PU Q4H PRN PRN Reason: HTN Lactated Ringer's (Lactated Ringers 1000 Ml Bag*) 1,000 mls @ 75 mls/hr IV PER RATE [facility] Last Admin: 06/04/19 16:07 Dose: 75 mls/hr Labetalol HCl (Trandate Iv*) 10 mg IV PUSH Q6H PRN PRN Reason: blood pressure breakthrough Lorazepam (Ativan Tab(*)) 0 - 6 mg PO .PER [facility] PROTOCOL [facility]; Protocol Metoprolol Succinate (Toprol Xl Tab*) 25 mg PO DAILY [facility] Last Admin: 06/05/19 07:23 Dose: 25 mg Multivitamins/Minerals (Theragran/Minerals Tab*) 1 tab PO DAILY [facility] Last Admin: 06/05/19 10:27 Dose: Not Given Pantoprazole Sodium (Protonix Tab*) 40 mg PO DAILY [facility] Last Admin: 06/05/19 10:27 Dose: Not Given Thiamine HCl (Vitamin B-1 Tab*) 100 mg PO DAILY [facility] Last Admin: 06/05/19 10:27 Dose: Not Given Vital Signs - 8 hr 06/05/19 06/05/19 06/05/19 09:56 11:15 12:00 Temperature 97 F Pulse Rate 70 Respiratory 18 20 Rate Blood Pressure 200/87 210/80 (mmHg) O2 Sat by Pulse 98 Oximetry 06/05/19 06/05/19 14:30 16:06 Temperature 98.4 F Pulse Rate 84 Respiratory 17 Rate Blood Pressure 220/110 188/88 (mmHg) O2 Sat by Pulse 100 Oximetry Oxygen Devices in Use Now: None Appearance: Elderly white male, laying in bed, appearing comfortable in NAD Eyes: No Scleral Icterus, - - PERRL Ears/Nose/Mouth/Throat: Mucous Membranes Moist Neck: NL Appearance and Movements; NL JVP Respiratory: Symmetrical Chest Expansion and Respiratory Effort, Clear to Auscultation Cardiovascular: NL Sounds; No Murmurs; No JVD, RRR Abdominal: - - abd soft, nontender, nondistended Extremities: - - trace, nonpitting edema to left hand consistent with IV infiltration Skin: No Rash or Ulcers Neurological: - - alert and oriented to self only; tells me he's at the [facility] in [place] and says year is 1918 Result Diagrams: 06/04/19 06:49 06/05/19 06:40 Additional Lab and Data: Lab Results 06/03/19 06/03/19 Range/Units 20:29 20:29 WBC 10.1 (3.5-10.8) 10^3/uL RBC 4.60 (4.18-5.48) 10^6 /uL Hgb 15.2 (14.0-18.0) g/dL Hct 44 (42-52) % MCV 97 H (80-94) fL MCH 33 H (27-31) pg MCHC 34 (31-36) g/dL RDW 15 (10-15) % Plt Count 229 (150-450) 10^3/uL MPV 7.6 (7.4-10.4) fL Neut % (Auto) 86.4 % Lymph % (Auto) 4.6 % Lagrange % (Auto) 8.9 % Eos % (Auto) 0.0 % Baso % (Auto) 0.1 % Absolute Neuts (auto) 8.8 H (1.5-7.7) 10^3/ul Absolute Lymphs (auto) 0.5 L (1.0-4.8) 10^3/ul Absolute Monos (auto) 0.9 H (0-0.8) 10^3/ul Absolute Eos (auto) 0.0 (0-0.6) 10^3/ul Absolute Basos (auto) 0.0 (0-0.2) 10^3/ul Absolute Nucleated RBC 0.0 10^3/ul Nucleated RBC % 0.0 INR (Anticoag Therapy) 0.97 (0.82-1.09) Microbiology and Other Data: Microbiology 06/03/19 21:33 Urine Culture - Final Urine No Growth (<1,000 CFU/mL) 06/03/19 20:52 Aerobic Blood Culture - Preliminary Blood Venous No Growth Day 1 Anaerobic Blood Culture - Preliminary No Growth Day 1 06/03/19 20:29 Aerobic Blood Culture - Preliminary Blood Venous No Growth Day 1 Anaerobic Blood Culture - Preliminary No Growth Day 1 Assess/Plan/Problems-Billing Assessment: 83 yo white male with PMHx severe , CAD, GERD with Abebe's, BPH, and alcohol use presents after being found on the floor at home. - Patient Problems (1) GOOD (acute kidney injury) Current Visit: Yes Status: Acute Code(s): N17.9 - ACUTE KIDNEY FAILURE, UNSPECIFIED SNOMED Code(s): 69442552 Comment: -2/2 rhabdomyolysis, was on floor for unknown period of time -continues to improve -received IVF, d/c today -CPK decreased (2) Fall Current Visit: Yes Status: Acute Comment: -unclear etiology -echo with EF 55-60%. Recent echo last month with severe -pending PT evaluation (3) Elevated troponin Current Visit: Yes Status: Acute Code(s): R79.89 - OTHER SPECIFIED ABNORMAL FINDINGS OF BLOOD CHEMISTRY SNOMED Code(s): 602954086 Comment: -peaked at 0.23, downtrended to 0.20 -appreciate cardiology consult, no intervention at this time -continue medical mgmt for CAD as below and starting aspirin (4) CAD (coronary artery disease) Current Visit: Yes Status: Acute Code(s): I25.10 - ATHSCL HEART DISEASE OF [place] CORONARY ARTERY W/O ANG PCTRS SNOMED Code(s): 27506845 Comment: -cont statin, plavix, metoprolol -started asa (5) Alcohol use Current Visit: Yes Status: Acute Code(s): Z72.89 - OTHER PROBLEMS RELATED TO LIFESTYLE SNOMED Code(s): 657292 Comment: -patient's friend reports patient has been drinking scotch regularly -AST:ALT reflects jail alcohol use -there is a hyperbilirubinemia which is downtrending, will follow -now scoring on WAM protocol. Patient was quite sedated by ativan this AM (6) Hypokalemia Current Visit: Yes Status: Acute Code(s): E87.6 - HYPOKALEMIA SNOMED Code( s): 91129773 Comment: -not resolved after repletion yesterday. Additional KCl IV today. Pending BMP repeat to recheck -possibly decreased po intake in setting of alcohol use (7) Hypertension Current Visit: Yes Status: Acute Code(s): I10 - ESSENTIAL (PRIMARY) HYPERTENSION SNOMED Code(s): 92498004 Comment: -patient was minimally hypertensive yesterday, so I suspect there was already some underlying hypertension -hypertensive with SBP>200 today; started amlodipine, prn hydralazine, and prn labetalol -I suspect his alcohol withdrawal is a component as well (8) Bleeding from wound Current Visit: Yes Status: Acute Code(s): T14.8XXA - OTHER INJURY OF UNSPECIFIED BODY REGION, INITIAL ENCOUNTER SNOMED Code(s): 721366305 Comment: -patient describes wound on back to have scant bleeding for approx one year -recommended outpatient dermatology f/u for biopsy -no signs of infection (9) BPH (benign prostatic hyperplasia) Current Visit: Yes Status: Acute Code(s): N40.0 - BENIGN PROSTATIC HYPERPLASIA WITHOUT LOWER URINRY TRACT SYMP SNOMED Code(s): 570668641 Comment: -no medications at home -no reports of retention (10) GERD (gastroesophageal reflux disease) Current Visit: Yes Status: Acute Code(s): K21.9 - GASTRO-ESOPHAGEAL REFLUX DISEASE WITHOUT ESOPHAGITIS SNOMED Code(s): 697982142 Comment: -continue PPI (11) Aortic stenosis, severe Current Visit: No Status: Acute Code(s): I35.0 - NONRHEUMATIC AORTIC (VALVE ) STENOSIS SNOMED Code(s): 32962754 Comment: -as discussed above -possibly cause of fall though patient is poor historian regarding how he ended up being found on the floor (12) Full code status Current Visit: Yes Status: Acute Code(s): Z78.9 - OTHER SPECIFIED HEALTH STATUS SNOMED Code(s): 256015363 (13) DVT prophylaxis Current Visit: Yes Status: Acute Code(s): Z29.9 - ENCOUNTER FOR PROPHYLACTIC MEASURES, UNSPECIFIED SNOMED Code(s): 778617278 Comment: -SCDs considering small subdural hematoma (improved since December 2018) Status and Disposition: Cannot return to [facility] where he lives, pending likely [facility] placement
--- NOTE | 2019-06-05 23:09 | CONS ---
GASTROENTEROLOGY CONSULT: DATE: 06/05/19 REFERRING PHYSICIAN: Palak Mendiola. REASON FOR CONSULTATION: History of Abebe's esophagus, GI bleeding, renal insufficiency and ongoing PPI treatment. 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 He was probably left unattended for 4 or more hours with the second or third of the sequence of falls on Tuesday , 06/03/19. He had no specific abdominal complaint or any vomiting. Just a few days before , he had been quite lucid and in good spirits at an office appointment. His blood pressure had been fine. He had a shuffling gait, but was actually energetic enough so that his cdl b driver, Ligia Garcia, a neighbor and a good friend, had taken him shopping later in the day. He had been eating fine. When brought to the emergency room, he was weak. He seemed a little confused, although was oriented. His hemoglobin was 15, BUN and creatinine are slightly elevated. Potassium is slightly low. His alcohol level is 0. He had been admitted to the hospital in November after a fall and had a subdural hematoma. Repeat CT scan showed the hematomas to have further shrunk from followup CT scans. PAST MEDICAL HISTORY: 1. Abebe's esophagus - longstanding and was smooth and last surveyed in 2012 , based on his frailty has been elected not to look again. 2. History of GI bleed - 2013 where he developed melena and weakness, but did not have any falls or decompensation of his other medical problems and was not admitted. Endoscopy showed gastritis. 3. Aortic stenosis - gradient of [address] Canchola does not feel it is the proximate cause of any symptoms (pt very sedentary) 4. Hypertension - on therapy at home. 5. Coronary artery disease - stented in [place]. 6. BPH. 7. Gout. 8. Obesity. 9. 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 He was treated with warfarin, just discontinued. There has been no recurrence. MEDICATIONS: As an outpatient: 1. Metoprolol 25. 2. Lisinopril/hydrochlorothiazide - status unclear. 3. Lipitor 80 mg. 4. Protonix 40 (recently discontinued Keppra). 5. Recently discontinued Plavix - this may have been reinstituted indirectly via a mail order, pharmacy refilling it. It had been stopped at the time of the subdural hematoma and the intention was to not restart it based on his history of falls. ALLERGIES: ALLOPURINOL, April 2017, reaction not listed. SOCIAL HISTORY: He lives in [place] [facility] near [place] and his responsibilities have included taking responsibility for certain evenings in group cooking. He had initially lived in [place] for 3 or 4 years after his fpc. REVIEW OF SYSTEMS: No history of seizures, CVA, prior syncope, prior confusion. He has never before had alcohol withdrawal symptoms. No history of cough, hemoptysis, or TB. Gallstones have been seen on imaging, though he has not had symptoms from them. He is on no dietary restrictions. Colonoscopy has been done more than 10 years ago. PHYSICAL EXAMINATION: He is examined in his hospital room in bed. He was sleepy, but arousable, oriented to place. HEENT exam shows no trauma to the head and neck. He had no adenopathy. He does have multiple abrasions documented in the wound consult. Breath sounds are diminished and with poor effort, can be heard symmetrically. There is a 3/6 somewhat harsh systolic murmur with regular heart sounds. His abdomen is mildly obese, symmetric, firm , but without any focal tenderness. Rectal deferred. Extremities show no deformity, but extensive actinic change in the skin and some abrasions. Neurologic is nonfocal. Intriguingly, he is aware of dates and requested to have his 6-month followup appointment changed so as not to interfere with the pentecostalism holiday. 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 Wiith a sedentary lifestyle and careful management, none of these have impacted on his lifestyle or activity, which has been limited just by aging and frailty. At this time, the cardiac issues appear stable, but he seems to be prone to falling, most likely on the basis of frailty and possibly to lesser extent alcohol use, which is not tolerated now whereas that had been in the past. He has never had any overt alcohol related issues. Minor decrements in equilibrium are probably present now. Given this, stopping his Plavix appears appropriate. It is my intention to not restart it. His gastrointestinal problems are no longer a priority other than to protect against gastrointestinal bleeding or heartburn, which Protonix should be able to accomplish regardless of whether he is on low-dose aspirin, which should be continued. [id number]/[facility] #: [id number] [facility] [address] [address] [facility]
[2019-06-06 06:49] LABS: BUN/Creatinine Ratio 21.8 (8-20); Calcium 8.9 mg/dL (8.6-10.3); EGFR Non-African American 51.2 (>60); Potassium 3.3 mmol/L (3.5-5.0)
[2019-06-06] MEDS ORDERED: Potassium Chlor TAB* 20 MEQ TAB.ER PO ONE (08:27)
[2019-06-06] MEDS ORDERED: KCL 20 MEQ/100 ML IVPREMIX* 20 MEQ/100 ML BAG IV SCH (09:00)
[2019-06-06] MEDS: Pantoprazole TAB * 40 MG TAB PO SCH (10:59)
[2019-06-06] MEDS: Thiamine TAB* 100 MG TAB PO SCH (10:59)
[2019-06-06] MEDS: Aspirin EC TAB* 81 MG TAB.EC PO SCH (10:59)
[2019-06-06] MEDS: Atorvastatin* 80 MG TAB PO SCH (10:59)
[2019-06-06] MEDS: Metoprolol Succinate XL TAB* 25 MG PO SCH (10:59)
[2019-06-06] MEDS: Multivitamins/Minerals TAB PO SCH (11:00)
[2019-06-06] MEDS: Folic Acid TAB* 1 MG PO SCH (11:00)
[2019-06-06] MEDS: amLODIPine TAB* 5 MG PO SCH (11:00)
[2019-06-06] MEDS: Clopidogrel TAB* 75 MG PO SCH (11:00)
--- NOTE | 2019-06-06 15:04 | DS ---
CC: Dr. Baez * DATE OF ADMISSION: 06/03/2019. DATE OF DISCHARGE: 06/06/2019. PRIMARY CARE PHYSICIAN: Dr. Baez. ATTENDING PHYSICIAN WHILE IN THE HOSPITAL: Dr. Marivel Sanders * (dictated by BEVERLEY Zacarias). CONSULTING ETL CONSULTANT WHILE IN THE HOSPITAL: Dr. Son Canchola. PRIMARY DIAGNOSES: 1. Elevated troponin, likely secondary to demand ischemia. 2. GOOD in the setting of rhabdomyolysis related to an extended period on the floor. 3. Hypokalemia likely related to alcohol use. 4. Fall, likely mechanical in the setting of alcohol use. 5. Hypertension. SECONDARY DIAGNOSES: 1. Coronary artery disease. 2. Severe aortic stenosis. 3. Abebe's esophagus. 4. BPH. 5. Diverticulosis. 6. Gout. 7. History of lower extremity DVT. 8. Previous subdural hemorrhage in November 2018. STUDIES WHILE IN THE HOSPITAL: 1. Abdomen ultrasound on 06/04/2019: Impression: Cholelithiasis without evidence for acute cholecystitis. The liver is slightly increased in echogenicity which is a nonspecific finding, although suggestive of fatty infiltration 2. Transthoracic echocardiogram on 06/04/2019: EF of 55 to 60 percent, no regional wall motion abnormalities, limited study to evaluate left ventricular function. 3. Brain CT on 06/03/2019: Impression: No new or acute hemorrhage, mass effect or shift. Interval decrease in size of small right subdural collection seen on the patient's prior examination from December. Findings consistent with small vessel ischemic change/microangiopathy. If further evaluation for recent , acute or subacute ischemic change is indicated, MR correlation is suggested. 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 In the setting of his severe aortic stenosis and an elevated troponin that was found on admission , Dr. Canchola was consulted. Dr. Canchola did not believe the patient needed to have cardiac catheterization or a stress test. Dr. Canchola did not believe that there was any cardiac component to his falls and thus his falls are likely mechanical in the setting of alcohol use. He was on the floor for an unknown period of time which is the cause of his rhabdomyolysis. He initially presented with acute kidney injury. His creatinine was 1.86 and on the date of discharge his creatinine is 1.33 which is around his baseline kidney function. He was persistently hypokalemic during his hospital stay despite repletion and his magnesium was normal. This was likely due to his alcohol use. Additionally, he did suffer from some alcohol withdrawal during his stay. On the date of discharge, he is over 24 hours without alcohol withdrawal symptoms to the point of needing Ativan per the [facility] protocol of this hospital. He did receive two doses of Ativan orally on the wanigan clerk of 06/05/2019 overnight shift. The patient was frequently hypertensive during his hospital stay. I do believe that there was a component of alcohol withdrawal to this; however, prior to his alcohol withdrawal symptom onset, he was hypertensive with systolic in the 180s to 160s and I did start Amlodipine during his hospital stay. The patient was without headache, visual changes, or anginal symptoms during his stay. Ultimately, his EKG had no ischemic changes and his troponin did peak at 0.23 and trended down to 0.20. The [facility] [place] [facility] [place] [facility] and the other retired priests there did confirm that it would be unsafe for him to return to the [facility] at this point. The patient was evaluated by Physical Therapy who determined the patient did have some acute PT needs. The patient will be going to [facility] to participate in rehab and potentially after rehab will move to [place], [place] for assisted living; however, this is to be determined in the outpatient setting. PHYSICAL EXAMINATION ON THE DAY OF DISCHARGE: General: Elderly white male lying upright in the hospital bed eating lunch, appearing comfortable and in no acute distress. Eyes: PERRL. Sclerae anicteric. ENT: Mucous membranes moist. Lungs: Clear to auscultation throughout. Cardio: Regular rate and rhythm. Grade 2 systolic murmur. Abdomen: Soft, nontender, nondistended. Extremities: No clubbing, cyanosis, or edema. No calf tenderness. Neuro: The patient is alert and oriented times. No focal deficits. Able to move all extremities. No tremor. DISCHARGE PLAN: The patient should have a repeat BMP every one to two days until his potassium is normalized and will likely need further oral repletion to that point. Additionally, the patient should have outpatient follow-up with a spare hand concerning the small bleeding lesion on his thoracic region of his back which is not consistent with a pressure ulcer. There is concern for a malignancy and perhaps should be biopsied. The patient should follow-up with his primary care provider, Dr. Baez, within one to two weeks after discharge from [facility]. DISCHARGE MEDICATIONS: Continued home medications: 1. Lipitor 80 mg p.o. daily. 2. Plavix 75 mg p.o. daily. 3. Metoprolol Succinate 25 mg p.o. daily. 4. Pantoprazole 40 mg p.o. daily. New medications: 1. Amlodipine 10 mg p.o. daily. 2. Thiamine 100 mg p.o. daily. 3. Multivitamin one tab p.o. daily. 4. Folic acid 1 mg p.o. daily. 5. Aspirin 81 mg p.o. daily. DIET: Heart-healthy diet. ACTIVITY: The patient should return to normal activity as tolerated. The patient will be doing to [facility] to participate in subacute rehab. CONDITION ON DISCHARGE: Stable. DISPOSITION: [facility] for subacute rehab. TIME SPENT: Approximately 40 minutes were spent on this discharge, approximately half this time was spent at bedside evaluating the patient and discussing the plan of care. BEVERLEY ZACARIAS [id number]/[facility] #: [id number] MTDD
[2019-06-06 15:13] LABS: BUN/Creatinine Ratio 20.8 (8-20); Calcium 8.7 mg/dL (8.6-10.3); EGFR African American 52.3 (>60); EGFR Non-African American 43.3 (>60); Potassium 3.9 mmol/L (3.5-5.0)
[2019-06-06 15:23] VITALS: BP 139/63
== END 2019-06-06 16:15 | DRG 683 ==
LOC: ED 19:40 → MEDTELE 21:47
PROVIDERS: ADMIT Internal Medicine; ATTEND Internal Medicine
DX: N17.9 Acute kidney failure, unspecified (principal); I50.32 Chronic diastolic (congestive) heart failure; E87.2 Acidosis; I24.8 Other forms of acute ischemic heart disease; F10.239 Alcohol dependence with withdrawal, unspecified; I25.10 Atherosclerotic heart disease of native coronary artery without angina pectoris; E78.5 Hyperlipidemia, unspecified; M10.9 Gout, unspecified; K21.9 Gastro-esophageal reflux disease without esophagitis; K22.70 Barrett's esophagus without dysplasia; N40.0 Benign prostatic hyperplasia without lower urinary tract symptoms; I35.0 Nonrheumatic aortic (valve) stenosis; I11.0 Hypertensive heart disease with heart failure; K57.90 Diverticulosis of intestine, part unspecified, without perforation or abscess without bleeding; E86.0 Dehydration; E83.42 Hypomagnesemia; R79.89 Other specified abnormal findings of blood chemistry; H26.9 Unspecified cataract; W19.XXXA Unspecified fall, initial encounter; E87.6 Hypokalemia; R58 Hemorrhage, not elsewhere classified; E66.9 Obesity, unspecified; S21.209A Unspecified open wound of unspecified back wall of thorax without penetration into thoracic cavity, initial encounter; S41.112A Laceration without foreign body of left upper arm, initial encounter; S81.812A Laceration without foreign body, left lower leg, initial encounter; T79.6XXA Traumatic ischemia of muscle, initial encounter; K80.20 Calculus of gallbladder without cholecystitis without obstruction; Z86.718 Personal history of other venous thrombosis and embolism; Z95.5 Presence of coronary angioplasty implant and graft; Z88.8 Allergy status to other drugs, medicaments and biological substances; I25.2 Old myocardial infarction; Z85.828 Personal history of other malignant neoplasm of skin; Y92.003 Bedroom of unspecified non-institutional (private) residence as the place of occurrence of the external cause; Z68.27 Body mass index [BMI] 27.0-27.9, adult; Z87.820 Personal history of traumatic brain injury; Z79.02 Long term (current) use of antithrombotics/antiplatelets; Z79.899 Other long term (current) drug therapy
CPT/HCPCS: 36415; 70450; 71045; 76705; 80048; 80053; 80320; 81003; 81015; 82550; 82607; 82746; 83605; 83735; 84443; 84484; 85025; 85610; 87040; 87086; 93005; 93308; 99284; A9270-GY; C8924; G0480; G8978-GP-CK; G8979-GP-CI; J0360; J3411; J3475; J3480